=== PATIENT | male | born 1950 | race Caucasian/White ===

== ENCOUNTER 2020-02-05 12:41 | Inpatient (IN) | payer MEDICARE, OTHER ==
[2020-02-05] VITALS (18 sets, daily range): BP systolic 85–120; BP diastolic 52–67
[~2020-02-05] VITALS: Ht 182.9 cm; Wt 72.2 kg
--- NOTE | 2020-02-05 12:45 | NUR ---
BIBRA FROM [facility] TO ER BED 5. AWAKE IN SEVERE RESP DISTRESS SATTING @ 92% ON NON REBREATHER 15LPM. BROUGHT IN FOR SOB. PER REPORT, PT WAS RECENTLY DIAGNOSED W/ FAILURE TO THRIVE PT JUST STAYS IN BED MOST OF THE TIME. PER WAS REPORTED TO HAVE VOMMITED AND POSSIBLY ASPIRATED. PT WAS NOTED BREATHING RAPID AND DEEP W/ RETRACTIONS AND ACCESORY MUSCLE USE. PT NOTED WITH BI;AT CRACKLES. MD IS AT BEDSIDE FOR INTUBATION.
--- NOTE | 2020-02-05 12:50 | NUR ---
RN, RT AND MD AT BEDSIDE FOR INTUBATION SET UP.
[2020-02-05] MEDS ORDERED: PROPOFOL 100 ML ONE (12:55)
--- NOTE | 2020-02-05 12:56 | NUR ---
ETOMIDATE AND NAS GIVEN PER .
--- NOTE | 2020-02-05 12:57 | NUR ---
RT NOTE Pt brought in from assisted living facility for respiratory distress due to possible aspiration. Pt intubated w 8.0 ETT @ 23 cm lip line. Pt then placed on [facility] vent w ordered settings. Abg done and vent setttings changed to RR of 20. Vent is plugged into red outlet w [facility] @ hob. Alarms are set and audible. Ett secure and patent Addendum: 02/05/20 at 1816 by IQRA ORTIZ RT Amended: Links added.
--- NOTE | 2020-02-05 12:57 | NUR ---
INTUBATION DONE BY . ET TUBE SIZE 8, 24 AT THE LIP AND + COLOR CHANGE.
--- NOTE | 2020-02-05 12:58 | NUR ---
PT IS HOOKED TO MECH VENT VIA ET TUBE.
--- NOTE | 2020-02-05 12:58 | NUR ---
VENT SETTING: AC 20 VT550 100% +5PEEP
--- NOTE | 2020-02-05 13:09 | NUR ---
F/C INSERTED FR 16 INDWELLING
[2020-02-05] MEDS ORDERED: GABA-534 PO (13:23)
[2020-02-05] MEDS ORDERED: LEVO-104 PO (13:23)
[2020-02-05] MEDS ORDERED: ALLO100T PO (13:23)
[2020-02-05] MEDS ORDERED: AMLO10TA7 PO (13:23)
[2020-02-05] MEDS ORDERED: HYDR-4384 PO (13:23)
[2020-02-05] MEDS ORDERED: METO100T14 PO (13:23)
--- NOTE | 2020-02-05 13:23 | NUR ---
CALLED NURSING SUP FOR ICU BED.
[2020-02-05] MEDS ORDERED: PIPERACILLIN /TAZOBACTAM 3.375 G in IV D5W 50 ML IV ONE (13:30)
[2020-02-05] MEDS ORDERED: VANCOMYCIN 1 GM in IV D5W 250 ML IV ONE (13:30)
[2020-02-05] MEDS ORDERED: ALBUTEROL FS 2.5 MG/3 ML VIAL.NEB NEB ONE (13:30)
[2020-02-05] MEDS ORDERED: methylPREDNISolone SOD SUCC 125 MG/2ML VIAL IV ONE (13:30)
[2020-02-05] MEDS ORDERED: MORPHINE SULFATE INJ 2 MG/ML DISP.SYRIN IV ONE (13:30)
[2020-02-05] MEDS ORDERED: methylPREDNISolone SOD SUCC 125 MG/2ML VIAL ONE (13:31)
[2020-02-05] MEDS ORDERED: MORPHINE SULFATE INJ 4 MG/ML DISP.SYRIN ONE (13:31)
[2020-02-05 13:39] LABS: BASOPHILS % (AUTO) 0.4 % (0.0-2.0); LYMPHOCYTES # (AUTO) 0.5 /CMM (0.8-4.8); LYMPHOCYTES % (AUTO) 3.8 % (20.0-44.0); MEAN CORPUSCULAR HGB CONC 31 g/dl (31.0-36.0); MEAN CORPUSCULAR VOLUME 105 fL (80-96); MONOCYTES # (AUTO) 0.5 /CMM (0.1-1.30); MONOCYTES % (AUTO) 3.9 % (2.0-12.0); NEUTROPHILS # (AUTO) 12.1 /CMM (1.8-8.9); NEUTROPHILS % (AUTO) 91.9 % (43.0-81.0); PLATELET COUNT (AUTO) 337 /CMM (150-450); WHITE BLOOD COUNT (AUTO) 13.2 K/uL (4.3-11.0)
[2020-02-05 13:40] LABS: APPEARANCE,URINE Clear (CLEAR); BILIRUBIN,URINE Negative (NEGATIVE); BLOOD, URINE Trace-intact Ery/uL (NEGATIVE); COLOR,URINE Yellow (YELLOW); KETONES,URINE Negative (NEGATIVE); LEUKOCYTE ESTERASE ,URINE Negative (NEGATIVE); NITRITE, URINE Negative (NEGATIVE); PROTEIN,URINE >=300 mg/dl (NEGATIVE); UGLUCOSE Negative (NEGATIVE); UROBILINOGEN,URINE 0.2 EU/dL (0.2)
[2020-02-05 13:42] LABS: RED BLOOD CELL COUNT(AUTO) 1.67 MIL/uL (4.5-6.0)
[2020-02-05 13:43] LABS: HEMATOCRIT 18 % (39-51); HEMOGLOBIN 5.4 g/dL (13.5-17.5)
--- NOTE | 2020-02-05 13:46 | NUR ---
VENT SETTING CHANGED TO: AC22 VT550 100% +5PEEP
[2020-02-05] MEDS ORDERED: ALBUTEROL FS 2.5 MG/3 ML VIAL.NEB ONE (13:52)
[2020-02-05] MEDS ORDERED: IV NS 0.9% 500 ML BAG IV ONE (14:00)
[2020-02-05 14:06] LABS: BACTERIA,URINE Rare /HPF (None Seen); SQUAMOUS EPITHELIAL CELL,UR Few /HPF (None Seen); WBC,URINE 0-2 /HPF (0-3)
[2020-02-05 14:11] LABS: ALANINE AMINOTRANSFERASE 13 U/L (12-78); ALKALINE PHOSPHATASE 98 U/L (46-116); ASPARTATE AMINOTRANSFERASE 30 U/L (15-37); BILIRUBIN,DIRECT 0.1 mg/dL (0.0-0.2); BILIRUBIN,TOTAL 0.3 mg/dL (0.2-1.0); CALCIUM, SERUM 8.6 mg/dL (8.5-10.1); CHLORIDE 111 mmol/L (98-107); GLUCOSE 96 mg/dL (74-106); SODIUM SERUM 146 mmol/L (136-145); TOTAL PROTEIN, SERUM 5.7 g/dL (6.4-8.2)
--- NOTE | 2020-02-05 14:22 | NUR ---
PAGED [facility].
[2020-02-05 14:27] LABS: POTASSIUM 6.2 mmol/L (3.5-5.1); UREA NITROGEN, BLOOD 133 mg/dL (7-18)
[2020-02-05 14:28] LABS: CARBON DIOXIDE 7 mmol/L (21-32); CREATININE 11.6 mg/dL (0.6-1.3)
--- NOTE | 2020-02-05 14:40 | NUR ---
NURSING SUP GAVE 250. WAIT 15 MINUTES. CLEANING BED.
[2020-02-05 14:42] LABS: B-TYPE NATRIURETIC PEPTIDE 78601 PG/ML (0-125)
[2020-02-05 14:52] LABS: BAND % (MANUAL) 10 % (0.0-5.0); NEUTROPHILS % (MANUAL) 82 (42-76)
[2020-02-05 14:53] LABS: LYMPHOCYTES % (MANUAL) 5 % (16-48); METAMYELOCYTES % 1 % (0-0); MONOCYTES % (MANUAL) 2 % (0-11.0)
[2020-02-05] MEDS ORDERED: ROCURONIUM BROMIDE 50 MG/5 ML IV ONE (14:55)
[2020-02-05] MEDS ORDERED: ETOMIDATE 2 MG/ML VIAL IV ONE (14:55)
--- NOTE | 2020-02-05 15:05 | NUR ---
report given to john acevedo for jose a. pt going to 261
--- NOTE | 2020-02-05 15:27 | NUR ---
pt transported to unit on gurney with emt, rn and rt at bedside w/ acls protocol.
[2020-02-05] MEDS ORDERED: FEE PK DOSING 1 MIN EA MC ONE (15:28)
[2020-02-05] MEDS ORDERED: ONDANSETRON HCL/PF 4 MG/2 ML VIAL IVP PRN (15:30)
[2020-02-05] MEDS ORDERED: MAGNESIUM HYDROXIDE 30 ML UDC PO PRN (15:30)
[2020-02-05] MEDS ORDERED: HYDROCODONE/APAP 5/325MG 1 EACH TABLET PO PRN (15:30)
[2020-02-05] MEDS ORDERED: ZOLPIDEM TARTRATE 5 MG TABLET PO PRN (15:30)
[2020-02-05] MEDS ORDERED: MAG HYDROX/AL HYDROX/SIMETH 30 ML UDC PO PRN (15:30)
--- NOTE | 2020-02-05 15:45 | NUR ---
RN OPENING NOTES RECEIVED PT VIA GURNEY FROM ED. PT IS INTUBATED, 04/27 AT THE LIP AC 22, TV 550. FIO2 100%, PEEP OF 5. PT IS OBTUNDED, NON-VERBAL, AND BED BOUND. SKIN IS NOT INTACT, MULTIPLE WOUNDS PRESENT. COVID ISO IMPLEMENTED AND ENFORCED. B SOFT WRIST RESTRAINTS ARE INTACT. SAFETY MEASURES HAVE BEEN IMPLEMENTED, CALL LIGHT IS WITHIN REACH, BED IS IN LOWEST AND LOCKED POSITION, SIDE RAILS UP X2, WILL CONTINUE TO MONITOR FOR ANY CHANGES.
[2020-02-05] MEDS: PIPERACILLIN /TAZOBACTAM 2.25 G in IV D5W 50 ML IV SCH ×2 (18:01→23:34)
--- NOTE | 2020-02-05 19:13 | NUR ---
RN NOTES HANDOFF REPORT HAS BEEN GIVEN TO NIGHTSHIFT RN FOR PABLITO.
--- NOTE | 2020-02-05 19:30 | NUR ---
SCHOOL COORDINATOR: INITIAL SHIFT NOTES RECEIVED REPORT FROM DAY SHIFT NURSE. PATIENT LAYING IN BED, INTUBATED, ETT 8, 24CM AT THE LIP AC 22, TV 550, FIO2 100%, PEEP OF 5. PT IS OBTUNDED, NON-VERBAL, AND BED BOUND, WITH PERIODS OF AGITATION, MANIFESTED BY ELEVATED HR IN THE 110s, ELEVATED RR UP TO 35. ISOLATION PRECAUTIONS OBSERVED PATIENT IS RULE OUT COVID-19. GASTRIC TUBE PATENT AND INTACT. B SOFT WRIST RESTRAINTS ARE INTACT. SAFETY MEASURES HAVE BEEN IMPLEMENTED, CALL LIGHT IS WITHIN REACH, BED IS IN LOWEST AND LOCKED POSITION, SIDE RAILS UP X2, WILL CONTINUE TO MONITOR FOR ANY CHANGES.
--- NOTE | 2020-02-05 20:03 | NUR ---
RT NOTE PT RECEIVED INTUBATED WITH 8.0 @ 23 CM RIGHT LIP LINE. MOVED ET TUBE TO MID. AMBU BAG @ HOB. SX DONE, ET TUBE SECURED AND PATENT. SMALL THIN YELLOW SECRETIONS NOTED. ALARMS ON AND AUDIBLE. NO DISTRESS NOTED AT THIS TIME. WILL CONTINUE TO MONITOR. LUIS CHAVEZ @ BEDSIDE. Addendum: 02/05/20 at 2003 by DIANA GROSS RT Amended: Links added.
[2020-02-05] MEDS: Z GUARD REMEDY 2 OZ OINT TP SCH (20:32)
--- NOTE | 2020-02-05 21:12 | NUR ---
MILLROOM SUPERVISOR NOTES PATIENT NOTED TO HAVE PERIODS OF AGITATION, MANIFESTED BY HR INCREASING TO 341=767 BPM, AND RESPIRATORY RATE GOING UP TO THE MID 30s. HERMINIA AGGARWAL DNP NOTIFIED, WITH ORDER TO START DIPRIVAN DRIP IN AGITATION PERSISTS, AND IF BP DROPS, ORDER OBTAINED FOR LEVOPHED DRIP TO KEEP SBP > 90. WILL MONITOR CLOSELY AND CARRY OUT ORDERS
[2020-02-05] MEDS: PROPOFOL 100 ML IV PRN (21:26)
[2020-02-05] MEDS ORDERED: NOREPINEPHRINE 8 MG in IV NS 0.9% 242 ML IV PRN (21:30)
--- NOTE | 2020-02-05 21:30 | NUR ---
CASE PACKER AND SEALER NOTES - BLOOD TRANSFUSION 1ST OF 2 UNITS OF PRBC TRANSFUSION STARTED. WILL MONITOR CLOSELY FOR ADVERSE REACTIONS.
--- NOTE | 2020-02-05 22:00 | NUR ---
AMMONIA WORKER NOTES RECEIVED CALL FROM PATIENT'S FRIEND AND DPOA, EVE DE OLIVEIRA. [phone]. PER YENNIFER, PATIENT HAS A LEFT UPPER ARM AV SHUNT THAT WAS PLACED DUE TO HISTORY OF WORSENING RENAL FUNCTION, BUT THE PATIENT HAS NOT BEEN STARTED ON HD YET. WILL NOTIFY MD REGARDING NEW INFORMATION.
--- NOTE | 2020-02-05 23:07 | NUR ---
SALES REPRESENTATIVE WOMENS HEALTH NOTES RECEIVED CALL FROM DR RUSS LUGO, WHOM WAS ASKING ABOUT THE PATIENT CURRENT PRESENTATION. DR SOLANO MADE AWARE THAT PATIENT IS CURRENTLY ORALLY INTUBATED ON MECHANICAL VENTILATION. PATIENT DOES HAVE A LEFT UPPER ARM AV FISTULA (POA) THAT WAS INSERTED FOR PENDING HD TREATMENTS DUE TO HISTORY OF WORSENING RENAL FUNCTION, BUT HAS NOT BEEN STARTED ON HD YET. PER DR SOLANO, GET STAT CHEM PANEL NOW. DR SOLANO MADE AWARE OF ACTIVE BLOOD TRANSFUSION. PER DR SOLANO, HAVE LAB DRAWN PERIPHERALLY AND TO NOTIFY WITH RESULTS. ORDERS FOR LABS PLACED, LAB CALLED FOR STAT PERIPHERAL. WILL CARRY OUT NEW ORDERS AND MONITOR CLOSELY
[2020-02-05 23:20] LABS: BASOPHILS % (AUTO) 0.2 % (0.0-2.0); HEMATOCRIT 21 % (39-51); LYMPHOCYTES # (AUTO) 0.2 /CMM (0.8-4.8); LYMPHOCYTES % (AUTO) 2.3 % (20.0-44.0); MEAN CORPUSCULAR HGB CONC 32 g/dl (31.0-36.0); MEAN CORPUSCULAR VOLUME 100 fL (80-96); MONOCYTES # (AUTO) 0.2 /CMM (0.1-1.30); MONOCYTES % (AUTO) 1.4 % (2.0-12.0); NEUTROPHILS # (AUTO) 10.3 /CMM (1.8-8.9); NEUTROPHILS % (AUTO) 96.1 % (43.0-81.0); PLATELET COUNT (AUTO) 323 /CMM (150-450); RED BLOOD CELL COUNT(AUTO) 2.13 MIL/uL (4.5-6.0); WHITE BLOOD COUNT (AUTO) 10.7 K/uL (4.3-11.0)
[2020-02-05 23:32] LABS: BILIRUBIN,TOTAL 0.4 mg/dL (0.2-1.0); CALCIUM, SERUM 8.8 mg/dL (8.5-10.1); TOTAL PROTEIN, SERUM 5.8 g/dL (6.4-8.2)
[2020-02-05 23:34] LABS: HEMOGLOBIN 6.8 g/dL (13.5-17.5)
[2020-02-05 23:36] LABS: CREATININE 11.6 mg/dL (0.6-1.3); PHOSPHORUS 8.4 mg/dL (2.5-4.9); POTASSIUM 6.6 mmol/L (3.5-5.1)
[2020-02-06] VITALS (81 sets, daily range): BP systolic 90–148; BP diastolic 54–86
[2020-02-06] MEDS ORDERED: SODIUM BICARBONATE SYR 50 MEQ/50 ML DISP.SYRIN IV ONE
[2020-02-06] MEDS ORDERED: SODIUM POLYSTYRENE SULFONATE 15 G/60 ML BOTTLE PO ONE
--- NOTE | 2020-02-06 | NUR ---
EDUCATION INTERN NOTES - CRITICAL LABS RECEIVED MULTIPLE CRITICAL LABORATORY RESULTS H/H 6.8/ K 6.6 BUN 138 CREAT 11.6 PHOS 8.4 ALL CRITICAL LAB RESULTS RELAYED TO DR FARAMANDIAN. KEITH WITH NEW ORDER FOR KAYEXELATE 30G VIA OGT, 1 AMP BICARB IV PUSH X1, BICARB DRIP (3AMPS IN D5W 1000ML) @ 100ML/HR. PATIENT WITH EXISTING ORDERS FOR 2 UNITS OF PRBC TOTAL. PER EDWARD GONZALES LATER THIS AM.
[2020-02-06] MEDS: Sodium Bicarbonate 150 MEQ in IV D5W 1,000 ML IV PRN ×3 (00:13→20:43)
[2020-02-06] MEDS ORDERED: SODIUM POLYSTYRENE SULFONATE 15 G/60 ML BOTTLE ONE (00:13)
--- NOTE | 2020-02-06 01:19 | NUR ---
EDGE STAINER NOTES WHEN RN WENT TO [facility] W[facility]ER AND OILER BLOOD, MARY FROM LAB EXPLAINED THAT A NEW ORDER MUST BE PLACED FOR THE 2ND UNIT OF PACKED CELLS. NEW ORDER PLACED. WILL TRANSFUSE WHEN BLOOD IS AVAILABLE
--- NOTE | 2020-02-06 01:30 | NUR ---
SOLUTIONS DEVELOPER NOTES NO ADVERSE REACTION TO 1ST UNITS OF PRBC. 2ND UNIT OF PRBC TRANSFUSION STARTED. WILL MONITOR CLOSELY FOR ADVERSE BLOOD TRANSFUSION REACTION
[2020-02-06 02:20] LABS: LYMPHOCYTES % (MANUAL) 4 % (16-48); MONOCYTES % (MANUAL) 1 % (0-11.0)
[2020-02-06 02:21] LABS: BAND % (MANUAL) 8 % (0.0-5.0); NEUTROPHILS % (MANUAL) 87 (42-76)
[2020-02-06 04:41] LABS: APPEARANCE,URINE SL CLOUDY (CLEAR); BILIRUBIN,URINE NEGATIVE (NEGATIVE); BLOOD, URINE LARGE Ery/uL (NEGATIVE); COLOR,URINE YELLOW (YELLOW); KETONES,URINE NEGATIVE (NEGATIVE); LEUKOCYTE ESTERASE ,URINE TRACE (NEGATIVE); NITRITE, URINE NEGATIVE (NEGATIVE); PH,URINE 5.5 (5.0-8.0); PROTEIN,URINE 100 mg/dl (NEGATIVE); UGLUCOSE NEGATIVE (NEGATIVE); UROBILINOGEN,URINE 0.2 EU/dL (0.2)
--- NOTE | 2020-02-06 04:45 | NUR ---
GREENS CUTTER NOTES BLOOD TRANSFUSION UNIT #2/2 INFUSED, NO SIGNS AND SYMPTOMS OF ADVERSE BLOOD TRANSFUSION REACTION. WILL CONTINUE TO MONITOR CLOSELY
[2020-02-06 04:47] LABS: BACTERIA,URINE Moderate /HPF (None Seen); RBC,URINE 21-50 /HPF (0-2); SQUAMOUS EPITHELIAL CELL,UR Rare /HPF (None Seen)
[2020-02-06 04:58] LABS: CREATININE, URINE 100.4 MG/DL (30.0-125.0); URINE TOTAL PROTEIN 287.9 mg/dL (0-11.9)
[2020-02-06] MEDS: PIPERACILLIN /TAZOBACTAM 2.25 G in IV D5W 50 ML IV SCH ×4 (05:02→23:45)
[2020-02-06] MEDS: PROPOFOL 100 ML IV PRN (05:03)
[2020-02-06] MEDS: ACETAMINOPHEN 325 MG TABLET PO PRN (05:09)
[2020-02-06 05:16] LABS: EOSINOPHIL,URINE None Seen
--- NOTE | 2020-02-06 06:44 | NUR ---
PAID INTERN CLOSING NOTES PATIENT LAYING IN BED, REMAINS SEDATED ON DIPRIVAN DRIP, ORALLY INTUBATED ON MECHANICAL VENTILATION. ETT 8.0/23 CM @ LIP LINE, VENT SETTINGS AC 22, TV 550, FIO2 TITRATED TO 80%, PEEP +5. PATIENT IS S/P BLOOD TRANSFUSION OF PRBC X2 UNITS, NO SIGNS AND SYMPTOMS OF ANY BLOOD TRANSFUSION REACTION. DR LUGO CURRENTLY IN ICU, MADE AWARE THAT THE POA REQUESTS FOR HIM TO SPEAK TO THE PATIENT'S PRIMARY MD, DR DOUG DAY, WHOM IS ALSO THE PATIENT'S POWDER WORKER TNT [phone] BEFORE CONSENTS ARE SIGNED. PHONE NUMBER ALSO LOCATED IN THE FRONT OF CHART. NO CONSENT YET OBTAINED FROM DPOA, AWAITING DISCUSSION BETWEEN PATIENT'S DOCTORS. WILL ENDORSE THE PATIENT TO THE AM SHIFT NURSE FOR PABLITO
[2020-02-06 06:55] LABS: BASOPHILS % (AUTO) 0.2 % (0.0-2.0); EOSINOPHILS % (AUTO) 0.3 % (0.0-6.0); HEMATOCRIT 26 % (39-51); HEMOGLOBIN 8.6 g/dL (13.5-17.5); LYMPHOCYTES # (AUTO) 0.2 /CMM (0.8-4.8); LYMPHOCYTES % (AUTO) 1.6 % (20.0-44.0); MEAN CORPUSCULAR HGB CONC 33 g/dl (31.0-36.0); MEAN CORPUSCULAR VOLUME 95 fL (80-96); MONOCYTES # (AUTO) 0.2 /CMM (0.1-1.30); MONOCYTES % (AUTO) 1.6 % (2.0-12.0); NEUTROPHILS # (AUTO) 12.4 /CMM (1.8-8.9); NEUTROPHILS % (AUTO) 96.3 % (43.0-81.0); PLATELET COUNT (AUTO) 267 /CMM (150-450); RED BLOOD CELL COUNT(AUTO) 2.75 MIL/uL (4.5-6.0); WHITE BLOOD COUNT (AUTO) 12.9 K/uL (4.3-11.0)
[2020-02-06 07:03] LABS: CALCIUM, SERUM 8.6 mg/dL (8.5-10.1); PHOSPHORUS 7.6 mg/dL (2.5-4.9); POTASSIUM 5.6 mmol/L (3.5-5.1)
[2020-02-06 07:07] LABS: CREATININE 11.2 mg/dL (0.6-1.3)
[2020-02-06 07:09] LABS: THYROID STIMULATING HORMONE 13.742 uIU/mL (0.358-3.74)
--- NOTE | 2020-02-06 07:10 | NUR ---
RN NOTES RECEIVED PT ON BED, INTUBATED, SEDATED , ON DIPRIVAN AT 20 MCG/KG/MIN, REMAINS SEDATED , ON MECHANICAL VENTILATION. ETT 8.0/23 CM @ LIP LINE, VENT SETTINGS AC 22, TV 550, FIO2 80%, PEEP +5. ON TELE SR HR IN 80'S , OGT TO LIS , R UPPER ARM MIDLINE AND R AC IV G 18 CLEAN, DRY AND INTACT, D5W WITH BICARB AT 100 CC /HR RUNNING . SR UP X3, CALL LIGHT WITHIN EASY REACH, BED LOCKED AND IN LOWEST POSITION, CONTINUE TO MONITOR .
--- NOTE | 2020-02-06 07:40 | NUR ---
RN NOTES TELEPHONE HD CONSENT OBTAINED FROM PT JOSEE.
[2020-02-06] MEDS: PANTOPRAZOLE 40 MG TABLET.DR PO SCH (08:10)
[2020-02-06] MEDS: Z GUARD REMEDY 2 OZ OINT TP SCH ×2 (08:11→21:08)
[2020-02-06 08:22] LABS: IRON, SERUM 12 ug/dl (50-175); TOTAL IRON BINDING CAPACITY 122 ug/dl (250-450)
--- NOTE | 2020-02-06 09:00 | NUR ---
RN NOTES DR PROSPER AWAN REGARDING MED RECON, AND TSH 13.742.
[2020-02-06 09:01] LABS: FERRITIN 2646 ng/mL (8-388)
--- NOTE | 2020-02-06 09:05 | NUR ---
RN NOTES O2 SAT IN LOW 80'S , DR LUIS MALDONADOFED , FIO2 INCREASED TO 100%, CONTINUE TO MONITOR .
[2020-02-06] MEDS ORDERED: AMIODARONE 150 MG in IV D5W 100 ML IV ONE (09:30)
--- NOTE | 2020-02-06 09:30 | NUR ---
RN NOTES PT DONE WITH DH , HR IN 160'S , A.CHANDU, DR ARMAS NOTIFED , ORDER RECEIVED FOR AMIO 159 BOLUS AND DRIP. CONTINUE TO MONITOR . Addendum: 02/06/20 at 1850 by GUSTAVO FLORES RN CORRECTION AMIO 150
[2020-02-06] MEDS ORDERED: VANCOMYCIN 1 GM in IV D5W 250 ML IV ONE (10:00)
[2020-02-06] MEDS: AMIODARONE 450 MG in IV D5W 250 ML IV PRN ×2 (10:04→19:24)
[2020-02-06 10:45] LABS: ABG BASE EXCESS -7.2 mmol/L; ABG OXYGEN SATURATION 96.7 % (92.0-98.5); ABG PH 7.374 (7.350-7.450); ABG PO2 94.8 mmHg (75.0-100.0); AaDO2 588.2 mmHg; COHb 0.3 % (0.5-1.5); MetHb 0.1 % (0.0-1.5); O2Hb 96.3 % (94.0-97.0); SITE, ABG Right Radial; VENT MODE, BG AC 22 550 +8 100%
[2020-02-06] MEDS: PROPOFOL 10MG/ML 50ML 50 ML IV PRN ×4 (11:01→23:27)
--- NOTE | 2020-02-06 12:00 | NUR ---
RN NOTES HR IN 80'S SINUS RYTHEM , VSS STABLE AT THIS TIME CONTINUE TO MONITOR .
[2020-02-06] MEDS: VANCOMYCIN POST DIALYSIS 500MG IV PRN ×2 (13:17)
--- NOTE | 2020-02-06 15:00 | NUR ---
RN NOTES NO GASTRIC GRAINAGE NOTED FROM OGT, PT SILL NPO, CONTINUE TO MONITOR .
--- NOTE | 2020-02-06 18:51 | NUR ---
RN NOTES PT REMAINS INTUBATED AND SEDATED ON DIPRIVAN AT 30MCG/KG/MIN , AMIO GTT AT .5 MG /MIN RUNNING , HR IN 80'S SR, D5W WITH BICARB AT 100CC /HR RUNNING , OGT TO LIS, SR UP x3, CALL LIGHT WITHIN EASY REACH , BED LOCKED AND IN LOWEST POSITION, WILL ENDOSE TO SURGICAL INSTRUMENT MECHANIC NURSE FOR CONTINUITY OF CARE .
--- NOTE | 2020-02-06 20:20 | NUR ---
RN NOTES RECEIVED PATIENT SEDATED ON BED. ORALLY INTUBATED WITH ETT 8 , 23 CM AT LIP WITH VENT SETTING AC 22 TV 550 FIO2 80% AND PEEP 5. TOLERATED WELL SATURATION 100%> aAFEBRILE, STRICTLY ON ISOLATION FOR R/O COVID. NO SOB OR RESPIRATORY DISTRESS. ST ON TELE MONITOR 100'S. CONTINEU ON AMIODARONE DRIP FOR EPISODE OF AFIB 160'S IN PREV. SHIFT. IV SITE ON HARPER MIDLINE WITH 3 AMP OF BICARB @ 100 ML/HR AMIODARONE @ o.5 STARTED AT 4PM AND DIPRIVAN @ 30 MG/KG/MIN. KEPT PT CLEAN AND DRY. CORINNE. SOFT WRIST RESTRAINT KEPT IN PLACED. CIRCULATION CHECKED . WILL CLOSELY MONITOR.
[2020-02-07] VITALS (73 sets, daily range): BP systolic 99–216; BP diastolic 57–90
[2020-02-07 04:00] LABS: BASOPHILS % (AUTO) 0.3 % (0.0-2.0); EOSINOPHILS % (AUTO) 0.2 % (0.0-6.0); HEMATOCRIT 25 % (39-51); HEMOGLOBIN 8.4 g/dL (13.5-17.5); LYMPHOCYTES # (AUTO) 0.5 /CMM (0.8-4.8); LYMPHOCYTES % (AUTO) 3.7 % (20.0-44.0); MEAN CORPUSCULAR HGB CONC 34 g/dl (31.0-36.0); MEAN CORPUSCULAR VOLUME 93 fL (80-96); MONOCYTES # (AUTO) 0.4 /CMM (0.1-1.30); MONOCYTES % (AUTO) 3.1 % (2.0-12.0); NEUTROPHILS % (AUTO) 92.7 % (43.0-81.0); PLATELET COUNT (AUTO) 218 /CMM (150-450); RED BLOOD CELL COUNT(AUTO) 2.63 MIL/uL (4.5-6.0)
[2020-02-07] MEDS: PROPOFOL 10MG/ML 50ML 50 ML IV PRN ×7 (04:08→22:19)
[2020-02-07 04:09] LABS: CALCIUM, SERUM 7.9 mg/dL (8.5-10.1); MAGNESIUM 1.8 mg/dL (1.8-2.4); POTASSIUM 3.9 mmol/L (3.5-5.1)
[2020-02-07] MEDS: PIPERACILLIN /TAZOBACTAM 2.25 G in IV D5W 50 ML IV SCH ×4 (05:04→23:41)
[2020-02-07 05:42] LABS: CREATININE 7.6 mg/dL (0.6-1.3)
--- NOTE | 2020-02-07 06:25 | NUR ---
RN NOTES PATIENT ETT AND VENT SETTING TOLERATED WELL. NO SIGNIFICANT CHANGES THROUGHOUT THE SHIT. AFEBRILE. VSS. INCONTINENT CARE RENDERED. CHARITY ND VENT SETTING TOLERATED WELL. NOTED PATIENT WITH EPISODE OF ANXIETY. CONTINUE TO MONITOR PATIENT FOR PENDING RESULT O F COVID TEST. CONTINUE ON IV F BICARB, DIRRIVAN AND AMIODARONE. AND IV ATB KEPT CLEAN AND DRY. BED KEPT LOCKED AND SECURED. WILL ENDORSED COTINUITY OFCARE TO AM NURSE.
[2020-02-07 07:37] LABS: ABG BASE EXCESS 3.1 mmol/L; ABG OXYGEN SATURATION 96.2 % (92.0-98.5); ABG PCO2 27.5 mmHg (35.0-45.0); ABG PH 7.574 (7.350-7.450); ABG PO2 84.4 mmHg (75.0-100.0); AaDO2 457.1 mmHg; MetHb 0.1 % (0.0-1.5); O2Hb 96.1 % (94.0-97.0); SITE, ABG Right Radial; VENT MODE, BG AC 12 550 80% +8
--- NOTE | 2020-02-07 07:57 | NUR ---
WOUND CARE CONSULT: REVIEWED CHART, NURSING DOCUMENTATION AND PHOTOS WHICH SHOW MULTIPLE WOUNDS PRESENT ON ADMISSION. RECOMMEND SURGICAL CONSULT. DR VARGHESE NOTIFIED OF CONSULT REQUEST. RECOMMENDATIONS FOR SKIN PROTECTION DISCUSSED WITH NURSING STAFF. WILL SEE PRN. PT IS ON [place] ISOFLEX LOW AIRLOSS BED.
[2020-02-07] MEDS: AMIODARONE HCL 200 MG TABLET NG SCH ×3 (08:12→16:46)
[2020-02-07] MEDS: PANTOPRAZOLE 40 MG TABLET.DR PO SCH (08:13)
[2020-02-07] MEDS: ALLOPURINOL 100 MG TABLET PO SCH (09:04)
[2020-02-07] MEDS: GABAPENTIN 300 MG CAPSULE PO SCH ×2 (09:06→16:45)
[2020-02-07] MEDS: METOPROLOL TARTRATE 50 MG TABLET PO SCH ×2 (09:06→20:11)
[2020-02-07] MEDS: AMLODIPINE BESYLATE 10 MG TABLET PO SCH (09:07)
[2020-02-07] MEDS: IV D5/ 0.9% NACL 1,000 ML IV PRN ×2 (09:07→18:37)
[2020-02-07 09:12] LABS: OCCULT BLOOD STOOL NEGATIVE (NEGATIVE)
[2020-02-07] MEDS: Z GUARD REMEDY 2 OZ OINT TP PRN ×4 (09:23→21:24)
[2020-02-07] MEDS: Z GUARD REMEDY 2 OZ OINT TP SCH ×2 (09:30→21:25)
--- NOTE | 2020-02-07 14:15 | NUR ---
REPEAT COVID TEST PER DR. SMITH
[2020-02-07] MEDS: SOD FERRIC GLUC 125 MG in IV NS 0.9% 100 ML IV SCH (14:18)
[2020-02-07] MEDS: NITROGLYCERIN 30 GM TUBE TP SCH ×2 (17:06→23:42)
--- NOTE | 2020-02-07 18:32 | NUR ---
ICU/RN: Pt remains on Propofol at 40 mcg at this time, appears sedated and comfortable. PT was not able to tolerate 35 mcg as he was pulling on his trach and his IV lines, in spite [place] was given. Having HD at this time, tolerating well. First COVID test is negative, sent another test as ordered for confirmation per DR. Grissom. NO drainage noted from his OGT to LIS. Urine output x 12 hrs was about 200 ml, clear and yellow. Spoke to Dann BONDS, updated with pt's status. REquests to get transferred to [facility] as soon as it is safe, PCP and Nephro are there. Will given report to shift supervisor rn.
--- NOTE | 2020-02-07 20:00 | NUR ---
Received patient on Diprivan gtt and intubated to mechanical vent.Settings welll tolerated. HD just finished with 1.5 Liters out.Will give Vancomycin post HD per order.Patient agitated and trying to reach for ETT.With bilateral soft wrist restraints in place.Diprivan gtt titrated to sedation.With moderate bm pasty dark green.Perineal and bed bath rendered.Turned and repositioned to comfort.Afebrile.Normotensive.Tachycardic 130's will administer Scheduled Metoprolol per OGT.Now connected to LIWS.NPO with maintenance IVF infusing via HARPER ML. FC in place with scanty yellow urine.Continue monitoring.
[2020-02-07] MEDS: VANCOMYCIN POST DIALYSIS 500MG IV PRN ×2 (20:01)
[2020-02-08] VITALS (44 sets, daily range): BP systolic 117–148; BP diastolic 51–69
[2020-02-08] MEDS: PROPOFOL 10MG/ML 50ML 50 ML IV PRN ×9 (01:00→20:51)
[2020-02-08] MEDS ORDERED: IV NS 0.9% 250 ML IV ONE (01:30)
[2020-02-08] MEDS: IV D5/ 0.9% NACL 1,000 ML IV PRN ×3 (04:15→23:22)
[2020-02-08 05:22] LABS: CALCIUM, SERUM 7.4 mg/dL (8.5-10.1); MAGNESIUM 1.6 mg/dL (1.8-2.4); PHOSPHORUS 3.1 mg/dL (2.5-4.9)
[2020-02-08 05:24] LABS: BASOPHILS % (AUTO) 0.1 % (0.0-2.0); EOSINOPHILS % (AUTO) 1.5 % (0.0-6.0); HEMATOCRIT 25 % (39-51); HEMOGLOBIN 8.2 g/dL (13.5-17.5); LYMPHOCYTES # (AUTO) 0.7 /CMM (0.8-4.8); LYMPHOCYTES % (AUTO) 4.5 % (20.0-44.0); MEAN CORPUSCULAR HGB CONC 33 g/dl (31.0-36.0); MEAN CORPUSCULAR VOLUME 95 fL (80-96); MONOCYTES # (AUTO) 0.3 /CMM (0.1-1.30); MONOCYTES % (AUTO) 1.7 % (2.0-12.0); NEUTROPHILS # (AUTO) 14.8 /CMM (1.8-8.9); NEUTROPHILS % (AUTO) 92.2 % (43.0-81.0); PLATELET COUNT (AUTO) 188 /CMM (150-450); RED BLOOD CELL COUNT(AUTO) 2.62 MIL/uL (4.5-6.0)
[2020-02-08 05:26] LABS: POTASSIUM 2.6 mmol/L (3.5-5.1)
[2020-02-08] MEDS: PIPERACILLIN /TAZOBACTAM 2.25 G in IV D5W 50 ML IV SCH ×3 (05:28→20:00)
[2020-02-08] MEDS: NITROGLYCERIN 30 GM TUBE TP SCH ×3 (05:29→17:17)
--- NOTE | 2020-02-08 06:15 | NUR ---
Patient AM labs resulted.K+ LEVEL 2.6 called to Erwin Salter NP with orders received and carried out.
[2020-02-08] MEDS ORDERED: POTASSIUM CHLORIDE 20 MEQ POWDER PACKET GT ONE (06:30)
--- NOTE | 2020-02-08 06:45 | NUR ---
Received call from Marilyn at [facility] states the Enteric tube position in the region of the gastroesophageal junction recommend advancing 5-10 cm or follow up abdominal radiographs to confirm position or KUB.Paged DONY Clifton for orders and will endorse to day shift for PABLITO.Patient resting in no acute distress.
[2020-02-08 07:00] LABS: ABG BASE EXCESS -1.9 mmol/L; ABG OXYGEN SATURATION 98.1 % (92.0-98.5); ABG PCO2 32.7 mmHg (35.0-45.0); ABG PH 7.443 (7.350-7.450); ABG PO2 122.3 mmHg (75.0-100.0); AaDO2 413.8 mmHg; COHb 0.1 % (0.5-1.5); MetHb 0.2 % (0.0-1.5); O2Hb 97.8 % (94.0-97.0); SITE, ABG Right Radial; VENT MODE, BG AC 18 500 80% +8
--- NOTE | 2020-02-08 07:15 | NUR ---
RN INITIAL NOTES RECEIVED PT INTUBATED, ON VENT. NO RESPIRATORY DISTRESS NOTED. NO SOB NOTED. HOB ELEVATED. NO SIGNS OF PAIN NOTED. OG IN PLACE CONNECTED TO LOW SUCTION. HARPER MIDLINE IN PLACE. IVF INFUSING. PT SEDATED, ON DIPRIVAN AT 50MCG/KG/MIN. WILL TITRATE ACCORDINGLY. [place] IN PLACE. BLE ELEVATED. PT COMFORTABLE. WILL CLOSELY MONITOR
[2020-02-08] MEDS: LEVOTHYROXINE SODIUM 100 MCG TABLET PO SCH (07:36)
[2020-02-08] MEDS: PANTOPRAZOLE 40 MG TABLET.DR PO SCH (07:36)
[2020-02-08] MEDS: GABAPENTIN 300 MG CAPSULE PO SCH ×2 (08:25→16:43)
[2020-02-08] MEDS: ALLOPURINOL 100 MG TABLET PO SCH (08:25)
[2020-02-08] MEDS: METOPROLOL TARTRATE 50 MG TABLET PO SCH ×2 (08:25→21:00)
[2020-02-08] MEDS: AMIODARONE HCL 200 MG TABLET NG SCH ×3 (08:26→16:43)
[2020-02-08] MEDS: Z GUARD REMEDY 2 OZ OINT TP SCH ×2 (08:26→21:07)
[2020-02-08] MEDS: AMLODIPINE BESYLATE 10 MG TABLET PO SCH (08:26)
--- NOTE | 2020-02-08 09:00 | NUR ---
RN NOTES SEEN AND EXAMINED BY DR SMITH. AWARE OF LAB VALUES, ABG AND CXR RESULT. TITRATED FI02 TO 60%, PEEP DOWN TO 5. NO RESPIRATORY DISTRESS NOTED. HOB ELEVATED. WILL CLOSELY MONITOR
[2020-02-08] MEDS: SOD FERRIC GLUC 125 MG in IV NS 0.9% 100 ML IV SCH (13:55)
[2020-02-08] MEDS: Magnesium 1GM/D5W 100ML PREMIX 100 ML IV SCH ×2 (16:02→17:17)
--- NOTE | 2020-02-08 18:40 | NUR ---
RN CLOSING NOTES NO SIGNIFICANT CHANGE NOTED. PT REMAINS INTUBATED, ON VENT. REMAINS SEDATED. IVF INFUSING. KEPT CLEAN AND DRY.TX PROVIDED ORDERED. REPOSITIONED Q2. WILL ENDORSE FOR CONTINUITY OF CARE
--- NOTE | 2020-02-08 20:00 | NUR ---
Received patient intubated to mechanical vent on same prescribed settings and tolerating well. Sedated on Diprivan gtt at 50 mcg.No acute distress noted.SR/SB low 50's.Normotensive.OGT Placement verified and patent connected to LIWS draining greenish output.FC intact oliguric. HD PARIS AVF site intact.IVF D5NS infusing via HARPER ML together with Diprivan gtt,site without signs of infection noted.Turned and repositioned.Continue monitoring.
[2020-02-09] VITALS (30 sets, daily range): BP systolic 128–172; BP diastolic 58–84
[2020-02-09] MEDS: PROPOFOL 10MG/ML 50ML 50 ML IV PRN ×9 (00:02→22:47)
[2020-02-09] MEDS: NITROGLYCERIN 30 GM TUBE TP SCH ×4 (00:03→17:54)
[2020-02-09] MEDS: IV NS 0.9% 250 ML IV PRN (02:25)
[2020-02-09] MEDS: PIPERACILLIN /TAZOBACTAM 2.25 G in IV D5W 50 ML IV SCH ×3 (03:45→20:29)
[2020-02-09 05:12] LABS: CALCIUM, SERUM 7.4 mg/dL (8.5-10.1); POTASSIUM 2.9 mmol/L (3.5-5.1)
--- NOTE | 2020-02-09 05:25 | NUR ---
MARY from lab called patient lab test COVID 19 resulted ans its NEGATIVE.
--- NOTE | 2020-02-09 06:30 | NUR ---
Patient remains sedated and intubated.With copious secretions orally.Secretions suction PRN and oral care done.VS stable.Bathed and complete linens changed.Turned and repositioned Q 2 hrs. Diprivan gtt infusing still at 50 mcg.and maintenance IVF.Patient easy awakened.BM X1 moderate greenish pasty stool.Kept clean and dry.All needs met.Still for ECHO.Will endorse to day shift for jose a.
[2020-02-09] MEDS: LEVOTHYROXINE SODIUM 100 MCG TABLET PO SCH (08:06)
[2020-02-09] MEDS: POTASSIUM CL. PREMIX PERIPHER. 50 ML IV SCH ×6 (08:06→13:25)
[2020-02-09] MEDS: ALLOPURINOL 100 MG TABLET PO SCH (08:06)
[2020-02-09] MEDS: PANTOPRAZOLE 40 MG TABLET.DR PO SCH (08:06)
[2020-02-09] MEDS: GABAPENTIN 300 MG CAPSULE PO SCH ×2 (08:06→16:58)
[2020-02-09] MEDS: AMIODARONE HCL 200 MG TABLET NG SCH ×3 (08:07→16:59)
[2020-02-09] MEDS: Z GUARD REMEDY 2 OZ OINT TP SCH ×2 (08:07→20:45)
[2020-02-09] MEDS: METOPROLOL TARTRATE 50 MG TABLET PO SCH ×2 (08:07→20:43)
[2020-02-09] MEDS: AMLODIPINE BESYLATE 10 MG TABLET PO SCH (08:07)
[2020-02-09 08:32] LABS: BASOPHILS % (AUTO) 0.2 % (0.0-2.0); HEMATOCRIT 27 % (39-51); HEMOGLOBIN 8.8 g/dL (13.5-17.5); LYMPHOCYTES # (AUTO) 0.5 /CMM (0.8-4.8); LYMPHOCYTES % (AUTO) 3.3 % (20.0-44.0); MEAN CORPUSCULAR HGB CONC 33 g/dl (31.0-36.0); MEAN CORPUSCULAR VOLUME 95 fL (80-96); MONOCYTES # (AUTO) 0.2 /CMM (0.1-1.30); MONOCYTES % (AUTO) 1.6 % (2.0-12.0); NEUTROPHILS % (AUTO) 92.9 % (43.0-81.0); PLATELET COUNT (AUTO) 160 /CMM (150-450); RED BLOOD CELL COUNT(AUTO) 2.79 MIL/uL (4.5-6.0); WHITE BLOOD COUNT (AUTO) 15.1 K/uL (4.3-11.0)
[2020-02-09 08:55] LABS: ABG BASE EXCESS -4.1 mmol/L; ABG OXYGEN SATURATION 98.8 % (92.0-98.5); ABG PCO2 30.6 mmHg (35.0-45.0); ABG PH 7.424 (7.350-7.450); ABG PO2 149.2 mmHg (75.0-100.0); AaDO2 244.9 mmHg; COHb 0.3 % (0.5-1.5); MetHb 0.1 % (0.0-1.5); O2Hb 98.4 % (94.0-97.0); PEEP,BG 5 cm H2O; SITE, ABG Right Radial; VT, ABG 500 mL
--- NOTE | 2020-02-09 09:00 | NUR ---
FIO2 DECREASE FROM 60% TO 40% DUE TO 149 PAO2 AND 100% SPO2 Addendum: 02/09/20 at 0900 by SHADIA MOORE RT Amended: Links added.
--- NOTE | 2020-02-09 09:00 | NUR ---
RN NOTES SEEN AND EXAMINED BY DR SMITH. AWARE OF LAB VALUES. CXR AND ABG RESULT. FI02 TITRATED TO 40%. WILL CLOSELY MONITOR
[2020-02-09] MEDS: IV D5/ 0.9% NACL 1,000 ML IV PRN ×2 (09:23→20:52)
--- NOTE | 2020-02-09 10:57 | NUR ---
ET TUBE ADJUSTED FROM 23 CM TO [address] SMITH. Addendum: 02/09/20 at 1058 by SHADIA MOORE RT Amended: Links added.
--- NOTE | 2020-02-09 11:42 | NUR ---
INITIAL ECHOCARDIOGRAM SHOWED 60-65% EF~ WITH LARGE PLEURAL EFFUSION. RN ADVISED.
[2020-02-09] MEDS: SOD FERRIC GLUC 125 MG in IV NS 0.9% 100 ML IV SCH (14:18)
--- NOTE | 2020-02-09 18:26 | NUR ---
RN CLOSING NOTES NO SIGNIFICANT CHANGE NOTED. PT REMAINS INTUBATED, ON VENT. REMAINS SEDATED. IVF INFUSING. HD DONE, 2L OUT. TOLERATED WELL. KEPT CLEAN AND DRY.TX PROVIDED ORDERED. REPOSITIONED Q2. WILL ENDORSE FOR CONTINUITY OF CARE
[2020-02-09] MEDS: VANCOMYCIN POST DIALYSIS 500MG IV PRN ×2 (18:57)
--- NOTE | 2020-02-09 19:41 | NUR ---
RT NOTE PT RECEIVED INTUBATED WITH 7.5 ET TUBE @ 25.5 CM MID LIP LINE. CUFF CHECKED VIA WHEEL BUFFER. SX DONE, ET TUBE SECURED AND PATENT. ALARMS ON AND AUDIBLE. NO DISTRESS NOTED. WILL CONTINUE TO MONITOR T/O SHIFT. VENT PLUGGED TO RED OUTLET. Addendum: 02/09/20 at 1941 by DIANA GROSS RT Amended: Links added. Addendum: 02/09/20 at 1953 by DIANA GROSS RT PT INTUBATED WITH 8.0 ET TUBE
[2020-02-10] VITALS (38 sets, daily range): BP systolic 117–183; BP diastolic 57–98
[2020-02-10] MEDS: NITROGLYCERIN 30 GM TUBE TP SCH ×4 (00:32→17:30)
[2020-02-10] MEDS: PROPOFOL 10MG/ML 50ML 50 ML IV PRN ×3 (01:26→06:29)
[2020-02-10] MEDS: PIPERACILLIN /TAZOBACTAM 2.25 G in IV D5W 50 ML IV SCH ×3 (03:24→20:01)
[2020-02-10 04:26] LABS: ALBUMIN 1.6 g/dL (3.4-5.0); BASOPHILS % (AUTO) 0.1 % (0.0-2.0); BILIRUBIN,TOTAL 0.3 mg/dL (0.2-1.0); CREATININE 3.8 mg/dL (0.6-1.3); EOSINOPHILS % (AUTO) 3.5 % (0.0-6.0); HEMATOCRIT 28 % (39-51); HEMOGLOBIN 9.2 g/dL (13.5-17.5); LYMPHOCYTES # (AUTO) 0.6 /CMM (0.8-4.8); LYMPHOCYTES % (AUTO) 3.2 % (20.0-44.0); MAGNESIUM 1.9 mg/dL (1.8-2.4); MEAN CORPUSCULAR HGB CONC 33 g/dl (31.0-36.0); MEAN CORPUSCULAR VOLUME 96 fL (80-96); MONOCYTES # (AUTO) 0.5 /CMM (0.1-1.30); MONOCYTES % (AUTO) 2.9 % (2.0-12.0); NEUTROPHILS # (AUTO) 15.8 /CMM (1.8-8.9); NEUTROPHILS % (AUTO) 90.3 % (43.0-81.0); PHOSPHORUS 3.2 mg/dL (2.5-4.9); PLATELET COUNT (AUTO) 148 /CMM (150-450); POTASSIUM 3.4 mmol/L (3.5-5.1); RED BLOOD CELL COUNT(AUTO) 2.87 MIL/uL (4.5-6.0); TOTAL PROTEIN, SERUM 4.9 g/dL (6.4-8.2); WHITE BLOOD COUNT (AUTO) 17.5 K/uL (4.3-11.0)
[2020-02-10 05:07] LABS: *SPE A/G RATIO 0.8 (0.7-1.7); *SPE ALBUMIN 2.3 g/dL (2.9-4.4); *SPE ALPHA-1-GLOBULIN 0.6 g/dL (0.0-0.4); *SPE ALPHA-2-GLOBULIN 1.1 g/dL (0.4-1.0); *SPE BETA GLOBULIN 0.6 g/dL (0.7-1.3); *SPE GLOBULIN, TOTAL 2.9 g/dL (2.2-3.9); *SPE M-SPIKE 0.1 g/dL (Not Observed); *SPEGAMMA GLOBULIN 0.7 g/dL (0.4-1.8)
[2020-02-10] MEDS: IV D5/ 0.9% NACL 1,000 ML IV PRN (06:40)
[2020-02-10] MEDS ORDERED: POTASSIUM CHLORIDE 20 MEQ POWDER PACKET NG SCH (07:30)
[2020-02-10] MEDS: LEVOTHYROXINE SODIUM 100 MCG TABLET PO SCH (07:54)
[2020-02-10] MEDS: PANTOPRAZOLE 40 MG TABLET.DR PO SCH (07:54)
[2020-02-10] MEDS: GABAPENTIN 300 MG CAPSULE PO SCH ×2 (07:58→17:29)
[2020-02-10] MEDS: AMLODIPINE BESYLATE 10 MG TABLET PO SCH (07:59)
[2020-02-10] MEDS: ALLOPURINOL 100 MG TABLET PO SCH (08:03)
[2020-02-10] MEDS: AMIODARONE HCL 200 MG TABLET NG SCH ×3 (08:25→17:29)
[2020-02-10] MEDS: METOPROLOL TARTRATE 50 MG TABLET PO SCH ×2 (08:25→20:52)
[2020-02-10] MEDS: Z GUARD REMEDY 2 OZ OINT TP SCH ×2 (08:57→20:53)
[2020-02-10] MEDS ORDERED: DC PROPOFOL WHEN EXTUBATED XX PRN (09:00)
[2020-02-10 09:45] LABS: ABG OXYGEN SATURATION 95.8 % (92.0-98.5); ABG PCO2 28.5 mmHg (35.0-45.0); ABG PH 7.478 (7.350-7.450); ABG PO2 75.8 mmHg (75.0-100.0); AaDO2 176.6 mmHg; COHb 0.3 % (0.5-1.5); MetHb 0.3 % (0.0-1.5); O2Hb 95.2 % (94.0-97.0); SITE, ABG Right Radial; VENT MODE, BG SIMV 4 PS 15 40% +5
--- NOTE | 2020-02-10 10:32 | NUR ---
ICU/RN: pt was received this am sedated on Propofol at 50 mcg/kg/min. ETT to vent on AC as ordered. Decreased Propofol down anticipating weaning trials this am as ordered. Pls see IV spreadsheet or details. 0900 Propofol was off, spontaneous breathing trial started, O2 sat 96-98%, HR 60's, pt is breathing WNL, 1000 ABG done 1 hour after was placed on SIMV and then was extubated successfully. Pt is on 3 LPM/NC now, tolerating very well. Will continue to monitor.
--- NOTE | 2020-02-10 11:14 | NUR ---
Physician Communication Dr. Fish made aware of: - no DVT prophylaxis (hgb, plts, Dr. Gould's note provided) -> received orders for SCD pump only. - 3+ edema on bilateral hands, warm, red. no documentation of this seen in charting, doppler to r/o DVT ordered
[2020-02-10] MEDS: IV NS 0.9% 250 ML IV PRN (13:25)
[2020-02-10] MEDS: SOD FERRIC GLUC 125 MG in IV NS 0.9% 100 ML IV SCH (14:20)
--- NOTE | 2020-02-10 18:30 | NUR ---
Pt was extubated at [address] Grissom, remains to tolerate 3 LPM/NC with O2 sat 96-98%. Pt is disoriented to date and situation in spite of reorientation. Hekp Lopressor this am due to HR was on the low 50's. Pt was able to tolerate ice chips and applesauce with no sign of aspiration, was able to swallow crushed meds with applesauce. Swallow eval will be done robin, 24hrs post extubation per Speech therapist. Mitten restraints applied because pt was removing wound dressings and pulled out the HARPER PIV, in spite of education and hiding IV tubing. US doppler of bilat UE not yet done, radiology made aware of the order. Will give report to incoming rn shift mgr for continuity of care.
--- NOTE | 2020-02-10 18:34 | NUR ---
DOCTORATE OF CHIROPRACTIC Shift Summary Patient remains verbal, A/Ox2 (aware of name+place), PERRLA. Attached to 2L O2 via NC, SPO2 95%, no SOB noted, RR even+unlabored. Per military technology manager, [employer] M[employer] tech will come when able for BUE venous doppler to r/o DVT. Tele monitor attached, SR 80s, BP slightly elevated, patient reports he wants to "get out of here". VAMSHI Reese updated and spoke to patient today via phone. Remained afebrile. Cough noted, non productive. HARPER midline infusing D5NS @20mL/hr, NS @TKO. Daily draining minimal urine. Mittens placed on both hands due to patient actively pulling at dressings. Wound care completed. Turned per protocol. SCDs on and working per MD order. No DVT prophylaxis, see Physician Communication note.
--- NOTE | 2020-02-10 19:30 | NUR ---
RIPPER OPERATOR OPENING NOTES. RECEIVED PATIENT IN BED, AWAKE, A/O X2, ANSWERS QUESTIONS BUT FORGETFUL. ON 2L O2, SATURATING WELL NO SOB OR ACUTE DISTRESS NOTED ST THIS TIME. SR ON TELE MONITOR. HARPER MID-LINE IS PATENT AND FLUSHING ELL, RUNNING 20ML/HR D5NS, AND NS TKO. [place] CATH IS DRAINING TO THE GRAVITY CLEAR YELLOW URINE. MITTENS NOTED ON BOTH HANDS DUE TO PULLING OUT IV AND REMOVING NS. BED IN LOW LOCKED POSITION. WILL CONTINUE TO MONITOR THE PATIENT CLOSELY.
[2020-02-11] VITALS (24 sets, daily range): BP systolic 134–186; BP diastolic 41–79
[2020-02-11] MEDS: NITROGLYCERIN 30 GM TUBE TP SCH ×4 (00:36→20:50)
[2020-02-11 04:18] LABS: BASOPHILS % (AUTO) 0.2 % (0.0-2.0); EOSINOPHILS % (AUTO) 0.5 % (0.0-6.0); HEMATOCRIT 28 % (39-51); LYMPHOCYTES # (AUTO) 0.5 /CMM (0.8-4.8); LYMPHOCYTES % (AUTO) 2.2 % (20.0-44.0); MEAN CORPUSCULAR HGB CONC 32 g/dl (31.0-36.0); MEAN CORPUSCULAR VOLUME 98 fL (80-96); MONOCYTES # (AUTO) 0.7 /CMM (0.1-1.30); MONOCYTES % (AUTO) 3.5 % (2.0-12.0); NEUTROPHILS # (AUTO) 19.7 /CMM (1.8-8.9); NEUTROPHILS % (AUTO) 93.6 % (43.0-81.0); PLATELET COUNT (AUTO) 181 /CMM (150-450); RED BLOOD CELL COUNT(AUTO) 2.88 MIL/uL (4.5-6.0)
[2020-02-11 04:33] LABS: CALCIUM, SERUM 8.2 mg/dL (8.5-10.1); CREATININE 4.3 mg/dL (0.6-1.3); MAGNESIUM 1.9 mg/dL (1.8-2.4); PHOSPHORUS 3.8 mg/dL (2.5-4.9); POTASSIUM 3.7 mmol/L (3.5-5.1)
[2020-02-11] MEDS: PIPERACILLIN /TAZOBACTAM 2.25 G in IV D5W 50 ML IV SCH ×3 (04:49→20:48)
--- NOTE | 2020-02-11 06:50 | NUR ---
FRY COOK CLOSING NOTES, PATIENT IN BED, AWAKE, A/O X2, ANSWERS QUESTIONS BUT FORGETFUL. ON 2L O2, SATURATING WELL NO SOB OR ACUTE DISTRESS NOTED ST THIS TIME. SR ON TELE MONITOR. HARPER MID-LINE IS PATENT AND FLUSHING ELL, RUNNING 20ML/HR D5NS, AND NS TKO. [place] CATH IS DRAINING TO THE GRAVITY CLEAR YELLOW URINE. MITTENS NOTED ON BOTH HANDS DUE TO PULLING OUT IV AND REMOVING NS. BED IN LOW LOCKED POSITION. WILL ENDORSE THE PATIENT TO AM RN FOR PABLITO.
[2020-02-11] MEDS: GABAPENTIN 300 MG CAPSULE PO SCH ×2 (07:49→16:25)
[2020-02-11] MEDS: LEVOTHYROXINE SODIUM 100 MCG TABLET PO SCH (07:49)
[2020-02-11] MEDS: ALLOPURINOL 100 MG TABLET PO SCH (07:49)
[2020-02-11] MEDS: AMIODARONE HCL 200 MG TABLET NG SCH (07:50)
[2020-02-11] MEDS: PANTOPRAZOLE 40 MG TABLET.DR PO SCH (07:50)
[2020-02-11] MEDS: METOPROLOL TARTRATE 50 MG TABLET PO SCH ×2 (07:50→20:49)
[2020-02-11] MEDS: Z GUARD REMEDY 2 OZ OINT TP SCH ×2 (07:51→20:51)
[2020-02-11] MEDS: AMLODIPINE BESYLATE 10 MG TABLET PO SCH (07:51)
[2020-02-11] MEDS: hydrALAZINE HCL 50 MG TABLET PO SCH ×3 (09:00→16:25)
[2020-02-11] MEDS: IV NS 0.9% 250 ML IV PRN (09:00)
--- NOTE | 2020-02-11 10:00 | NUR ---
patient seen by speech therapist who recommended a pureed diet with nectar thick liquids. thickener at bedside, sign placed above bed, patient sitting in high fowlers, frequent oral care, suction at bedside
--- NOTE | 2020-02-11 12:29 | NUR ---
patient is currently being dialyzed
--- NOTE | 2020-02-11 12:36 | NUR ---
gabi ashley aware of critical procal level, no new orders received
--- NOTE | 2020-02-11 15:05 | NUR ---
transfer to 3W note - SAP ENTERPRISE PORTAL CONSULTANT patient remains verbal, A/Ox2, attached to 2L O2. downgraded to room 326-1, DPMILIND Phillips aware, receiving RN at bedside. No belongings. Medications with patient. Endorsed nectar thick liquids with thickening powder at bedside. HARPER midline intact and patent.
--- NOTE | 2020-02-11 15:10 | NUR ---
RN NOTES PATIENT TRANSFERRED FROM ICU A/O X3, ON O2-2L NC, PATIENT WAS REFUSED PAIN AT THIS TIME TOTAL CARE, INFUSING VANCOMYCIN 100 ML/HR ON RIGHT MIDLINE INTACT, C/S TAKEN BP 161/78, P-84, PATIENT HAS EDEMA BILATERAL LOWER EXTREMITIES, UPPER ARMS, AND SCROTAL AREA. ASSIST TURN AND REPOSTION Q 2 HR, PUT SIGN NO BP ON LEFT ARM BECAUSE OF HD SHUNT. CALL LIGHT WITHIN TO REACH, ELEVATED EXTREMITIES USING PILLOWS.
[2020-02-11] MEDS: VANCOMYCIN POST DIALYSIS 500MG IV PRN ×2 (15:46)
[2020-02-11] MEDS: SOD FERRIC GLUC 125 MG in IV NS 0.9% 100 ML IV SCH (16:18)
--- NOTE | 2020-02-11 18:00 | NUR ---
RN NOTES PATIENT STABLE IN THE BED A/O X3, NO ACUTE RESPIRATORY DISTRESS, ADMINISTERED SCHEDULED MEDICATION, V/S SABLE, ASSIST TURN AND REPOSTION Q 2 HR, CALL LIGHT WITHIN TO READ. GET ASSIST FEEDING BY GEAR ROLLER. CALL LIGHT WITHIN TO REACH, ENDORSED ONCOMING NURSE FOLLOW PLAN OF CARE.
--- NOTE | 2020-02-11 19:30 | NUR ---
BOX WORKER OPENING NOTE RECEIVED PATIENT IN BED. A/OX2. ON OXYGEN 2L/MIN VIA NASAL CANNULA. RESPIRATIONS ARE EVEN AND UNLABORED. NO S/S SOB NOTED. NO C/O PAIN AT THIS TIME. EXTERNAL TELE MONITOR READS SINUS RHYTHM HR 92. IN NO APPARENT DISTRESS. [place] CATHETER IS PRESENT, DRAINING TO GRAVITY, OUTPUT IS YELLOW AND CLEAR. IV ACCESS IN HARPER MIDLINE RUNNING TKO. PARIS WITH AV FISTULA POSITIVE THRILL AND BRUIT. BED IS LOW AND LOCKED, HOB ELEVATED IN HIGH FOWLERS, SIDE RIAL SUP X3, RITCHIE LIGHT WITHIN REACH. WILL CONTINUE TO MONITOR.
[2020-02-12] VITALS (8 sets, daily range): BP systolic 131–157; BP diastolic 72–84
[2020-02-12] MEDS: PIPERACILLIN /TAZOBACTAM 2.25 G in IV D5W 50 ML IV SCH ×3 (03:43→20:23)
--- NOTE | 2020-02-12 07:05 | NUR ---
LEMON GROWER CLOSING NOTE PATIENT IN BED. A/OX2. ON OXYGEN 2L/MIN VIA NASAL CANNULA. RESPIRATIONS ARE EVEN AND UNLABORED. NO S/S SOB NOTED. NO C/O PAIN. EXTERNAL TELE MONITOR READS SINUS RHYTHM. NO DISTRESS. [place] CATHETER IS MAINTAINED DRAINING TO GRAVITY, OUTPUT IS YELLOW AND CLEAR. IV ACCESS RIGHT FOREARM #20 PATENT AND SALINE LOCKED. BED REMAINS LOW AND LOCKED, HOB ELEVATED IN HIGH FOWLERS, SIDE RIAL SUP X3, CALL LIGHT WITHIN REACH. WILL ENDORSE TO NEXT SHIFT.
--- NOTE | 2020-02-12 07:30 | NUR ---
GALLEY WORKER OPENING NOTE Received patient in bed, A&O x 2. VSS, afebrile, no SOB noted. Breathing even and non-labored on 2L oxygen vis NC. Patient denies pain at this time. On tele monitor, reading SR HR 85. IV access noted in R forearm #20g, patent, intact, and flushing well. Bilateral mittens are put on pt's hands, hotel night auditor nurse reports that patient tries to pull out their IV. Daily catheter present, draining to gravity. Urine clear and yellow. AV fistula noted on [place]IS, bruit and thrill present. Fall precautions maintained. Will continue with current medical management. Addendum: 02/12/20 at 1745 by PAULINA ATKINSON RN CORRECTION: Wrong patient documentation regarding restraints. Patient does not have any restraints upon AM assessment.
[2020-02-12] MEDS: LEVOTHYROXINE SODIUM 100 MCG TABLET PO SCH (08:25)
[2020-02-12] MEDS: ALLOPURINOL 100 MG TABLET PO SCH (08:25)
[2020-02-12] MEDS: PANTOPRAZOLE 40 MG TABLET.DR PO SCH (08:25)
[2020-02-12] MEDS: GABAPENTIN 300 MG CAPSULE PO SCH ×2 (08:25→16:48)
[2020-02-12] MEDS: METOPROLOL TARTRATE 50 MG TABLET PO SCH ×2 (08:26→20:29)
[2020-02-12] MEDS: AMLODIPINE BESYLATE 10 MG TABLET PO SCH (08:26)
[2020-02-12] MEDS: hydrALAZINE HCL 50 MG TABLET PO SCH ×3 (08:27→16:52)
[2020-02-12] MEDS: NITROGLYCERIN 30 GM TUBE TP SCH ×2 (08:31→20:24)
[2020-02-12] MEDS: Z GUARD REMEDY 2 OZ OINT TP SCH ×2 (08:33→20:25)
[2020-02-12] MEDS: MUPIROCIN OINT 2% 22 GM TUBE SCH ×2 (08:35→20:25)
--- NOTE | 2020-02-12 18:23 | NUR ---
TELE/RN CLOSING NOTES Patient resting comfortably in bed, A&O x 2. VSS, remains afebrile, no SOB noted. Breathing even and non-labored on 2L oxygen via NC, saturating at 93%. Patient has no complaints of pain/discomfort at this time. On tele monitor, reading SR, HR 80. IV access noted in R forearm #20g, patent, intact, and flushing well. AV fistula noted on [place], bruit and thrill present. Sensation from all peripheral extremities intact. Daily catheter present, patent and intact, and draining to gravity well. Urine clear and yellow. Fall precautions maintained. Will endorse to slot shift supervisor nurse.
--- NOTE | 2020-02-12 20:00 | NUR ---
RADIATION THERAPIST OPENING NOTE RECEIVED PATIENT IN BED. A/OX2. ON OXYGEN 2L/MIN VIA NASAL CANNULA. RESPIRATIONS ARE EVEN AND UNLABORED. NO S/S SOB NOTED. NO C/O PAIN AT THIS TIME. TELE MONITOR READS SINUS RHYTHM HR 72. IN NO APPARENT DISTRESS. [place] CATHETER IS PRESENT, DRAINING TO GRAVITY, OUTPUT IS YELLOW AND CLEAR. IV ACCESS IN RIGHT FA RUNNING TKO. [place] WITH AV FISTULA POSITIVE THRILL AND BRUIT. BED IS LOW AND LOCKED, HOB ELEVATED IN HIGH FOWLERS, SIDE RIAL SUP X3, RITCHIE LIGHT WITHIN REACH. WILL CONTINUE TO MONITOR.
[2020-02-13] VITALS: BP 139/74
--- NOTE | 2020-02-13 | NUR ---
TELE/RN CONTINUITY OF CARE NOTE RECEIVED ENDORSEMENT FROM LUIS GOMEZ FOR PABLITO FOR PATIENT WHO IS RESTING IN BED ON TELE MONITORING WITH SR AT 68, PATIENT ASLEEP BUT AROUSES EASILY ON NASAL CANULA AT 2 LITER. RESPIRATIONS EVEN AND UNLABORED, SKIN WARM TO TOUCH [place] CATHETER DRAINING YELLOW COLORED URINEM IV SITE ON RFA GAUGE 20 PATENT, ON SCHEDULED ANTIBIOTIC ZOSYN AT 0400 AT EVERY 8 HOURS, WITH AV FISTULA, OBSERVED THRILL AND BRUIT. BED LOCKED, CALL LIGHTS WITHIN REACH. WILL MONITOR.
[2020-02-13 00:05] VITALS: BP 140/74
[2020-02-13] MEDS: PIPERACILLIN /TAZOBACTAM 2.25 G in IV D5W 50 ML IV SCH ×3 (03:06→20:52)
[2020-02-13 04:15] VITALS: BP 135/81
--- NOTE | 2020-02-13 06:32 | NUR ---
326-1 TELE/RN NOTES PATIENT IN BED, SLEPT DURING THE NIGHT,ALERT X 2 ON OXYGEN VIA NC BREATHING EVEN AND UNLABORED, MONITORED FOR ANY CHANGES, ATTENDED TO ALL NEEDS, ON [place] DRAINING URINE. WILL ENDORSE TO AM RN FOR PABLITO.
[2020-02-13 08:00] VITALS: BP 134/79
[2020-02-13] MEDS: GABAPENTIN 300 MG CAPSULE PO SCH ×2 (08:31→17:03)
[2020-02-13] MEDS: PANTOPRAZOLE 40 MG TABLET.DR PO SCH (08:31)
[2020-02-13] MEDS: hydrALAZINE HCL 50 MG TABLET PO SCH ×3 (08:32→17:04)
[2020-02-13] MEDS: METOPROLOL TARTRATE 50 MG TABLET PO SCH ×2 (08:32→21:18)
[2020-02-13] MEDS: AMLODIPINE BESYLATE 10 MG TABLET PO SCH (08:32)
[2020-02-13] MEDS: LEVOTHYROXINE SODIUM 100 MCG TABLET PO SCH (08:32)
[2020-02-13] MEDS: MUPIROCIN OINT 2% 22 GM TUBE SCH ×2 (08:33→21:00)
[2020-02-13] MEDS: Z GUARD REMEDY 2 OZ OINT TP SCH ×2 (08:33→21:17)
[2020-02-13] MEDS: ALLOPURINOL 100 MG TABLET PO SCH (08:33)
[2020-02-13] MEDS: NITROGLYCERIN 30 GM TUBE TP SCH ×2 (08:34→21:17)
[2020-02-13 12:24] LABS: ALBUMIN 1.7 g/dL (3.4-5.0); BILIRUBIN,TOTAL 0.4 mg/dL (0.2-1.0); CALCIUM, SERUM 8.1 mg/dL (8.5-10.1); CREATININE 4.5 mg/dL (0.6-1.3); MAGNESIUM 1.9 mg/dL (1.8-2.4); POTASSIUM 3.5 mmol/L (3.5-5.1); TOTAL PROTEIN, SERUM 5.3 g/dL (6.4-8.2)
[2020-02-13 12:29] LABS: BASOPHILS # (AUTO) 0.1 /CMM (0.0-0.2); BASOPHILS % (AUTO) 0.4 % (0.0-2.0); EOSINOPHILS % (AUTO) 1.8 % (0.0-6.0); HEMATOCRIT 29 % (39-51); HEMOGLOBIN 9.2 g/dL (13.5-17.5); LYMPHOCYTES # (AUTO) 0.8 /CMM (0.8-4.8); MEAN CORPUSCULAR HGB CONC 32 g/dl (31.0-36.0); MEAN CORPUSCULAR VOLUME 98 fL (80-96); MONOCYTES % (AUTO) 6.8 % (2.0-12.0); NEUTROPHILS # (AUTO) 13.2 /CMM (1.8-8.9); PLATELET COUNT (AUTO) 190 /CMM (150-450); RED BLOOD CELL COUNT(AUTO) 2.93 MIL/uL (4.5-6.0); WHITE BLOOD COUNT (AUTO) 15.4 K/uL (4.3-11.0)
--- NOTE | 2020-02-13 14:28 | NUR ---
RN NOTE Patient started HD at this time.
[2020-02-13 16:00] VITALS: BP 123/70
--- NOTE | 2020-02-13 17:00 | NUR ---
RN NOTE HD completed, 1L out. Patient remains stable, VS stable.
--- NOTE | 2020-02-13 19:00 | NUR ---
RN CLOSING NOTE Patient is resting in bed, A/O x2, with periods of confusion and agitation. Showing no signs of acute distress or SOB, saturating >95% on 2L NC. Patient has no complaints of pain during my shift. IV line in the right wrist #22g is clean and intact running TKO. Daily catheter noted with 0ml urine output due to HD today. 1 episode of watery diarrhea this afternoon. All patient needs met, all due medications given. Patient kept clean and dry throughout shift. Fall, safety and aspiration precautions enforced. Bed is in lowest position, side rails x3 in upright position, call light is within reach. Endorsed to warehouse worker 2nd shift RN for PABLITO.
--- NOTE | 2020-02-13 19:30 | NUR ---
MS RN RECEIVE PT A/O X 2 NO C/O PAIN, NO S/S OF DISTRESS, [place] AV FISTULA INTACT, SAFETY MEASURES AT ALL TIMES. WILL CONT TO MONITOR.
[2020-02-13 20:00] VITALS: BP 150/76
[2020-02-13] MEDS: ACETAMINOPHEN 325 MG TABLET PO PRN (21:16)
[2020-02-14] MEDS: PIPERACILLIN /TAZOBACTAM 2.25 G in IV D5W 50 ML IV SCH ×3 (03:30→20:59)
--- NOTE | 2020-02-14 06:05 | NUR ---
MS RN PT ASLEEP AND EASILY AWAKEN, NO S/S OF DISTRESS. NURSING CARE RENDERED, KEPT CLEAN, DRY AND COMFORTABLE AT ALL TIMES. ALL NEEDS ATTENDED AND ANTICIPATED, REPOSITION EVERY 2 HOURS. OFFLOAD HEELS AND ELBOWS AT ALL TIMES. SAFETY MEASURES AT ALL TIMES. WILL ENDORSE TO NEXT SHIFT.
[2020-02-14 06:49] LABS: BASOPHILS # (AUTO) 0.1 /CMM (0.0-0.2); BASOPHILS % (AUTO) 0.4 % (0.0-2.0); EOSINOPHILS % (AUTO) 2.4 % (0.0-6.0); HEMATOCRIT 28 % (39-51); HEMOGLOBIN 9.2 g/dL (13.5-17.5); LYMPHOCYTES # (AUTO) 0.8 /CMM (0.8-4.8); LYMPHOCYTES % (AUTO) 5.1 % (20.0-44.0); MEAN CORPUSCULAR HGB CONC 33 g/dl (31.0-36.0); MEAN CORPUSCULAR VOLUME 98 fL (80-96); MONOCYTES # (AUTO) 1.3 /CMM (0.1-1.30); NEUTROPHILS # (AUTO) 12.4 /CMM (1.8-8.9); NEUTROPHILS % (AUTO) 83.1 % (43.0-81.0); PLATELET COUNT (AUTO) 182 /CMM (150-450); RED BLOOD CELL COUNT(AUTO) 2.88 MIL/uL (4.5-6.0); WHITE BLOOD COUNT (AUTO) 14.9 K/uL (4.3-11.0)
--- NOTE | 2020-02-14 08:00 | NUR ---
m/s meteorological technician: initial assessment received pt in bed awake, a/ox2 with confusion and disorientation to place and situation. pt easily irritated. reality orientation provided prn. no c/o pain or any discomfort. will continue to monitor.
[2020-02-14 08:35] VITALS: BP 156/72
[2020-02-14] MEDS: METOPROLOL TARTRATE 50 MG TABLET PO SCH ×3 (08:50→21:53)
[2020-02-14] MEDS: AMLODIPINE BESYLATE 10 MG TABLET PO SCH ×2 (08:50→09:01)
[2020-02-14] MEDS: hydrALAZINE HCL 50 MG TABLET PO SCH ×4 (08:50→17:01)
[2020-02-14] MEDS: GABAPENTIN 300 MG CAPSULE PO SCH ×2 (08:51→17:01)
[2020-02-14] MEDS: LEVOTHYROXINE SODIUM 100 MCG TABLET PO SCH (08:51)
[2020-02-14] MEDS: Z GUARD REMEDY 2 OZ OINT TP SCH ×2 (08:51→21:25)
[2020-02-14] MEDS: PANTOPRAZOLE 40 MG TABLET.DR PO SCH (08:51)
[2020-02-14] MEDS: ALLOPURINOL 100 MG TABLET PO SCH (08:51)
[2020-02-14] MEDS: NITROGLYCERIN 30 GM TUBE TP SCH ×3 (08:51→21:25)
[2020-02-14] MEDS: MUPIROCIN OINT 2% 22 GM TUBE SCH ×2 (08:53→21:25)
--- NOTE | 2020-02-14 09:48 | NUR ---
m/s flight service agent: nephro f/u seen by dr. pollack with order for d'c planning with additional: needs hd arranged. contact dr. renee. orders relayed to case management.
--- NOTE | 2020-02-14 10:00 | NUR ---
m/s legislative director: notes pt refusing to be turned and repositioned. unable to assess his bottom; only picture in chart and describe in skin intervention. also noted chest discoloration, but pt refused photo. pt easily irritated when teaching and education provided. instructed to call for assistance.
--- NOTE | 2020-02-14 12:00 | NUR ---
m/s senior applications engineer: notes still pt refusing care and repositioning when staff offered. lunch served. hob elevated. instructed to call for assistance.
[2020-02-14 12:54] LABS: BAND % (MANUAL) 2 % (0.0-5.0); EOSINOPHILS % (MANUAL) 1 % (0-4); LYMPHOCYTES % (MANUAL) 7 % (16-48); MONOCYTES % (MANUAL) 5 % (0-11.0); MYELOCYTES % 3 % (0-0); NEUTROPHILS % (MANUAL) 82 (42-76)
--- NOTE | 2020-02-14 14:00 | NUR ---
m/s fagot maker: notes pt still refuses to be turned and repositioned when staff offered. instructed to call for assistance. will continue to monitor.
--- NOTE | 2020-02-14 15:40 | NUR ---
m/s residential sales rep: notes pt refused pm care; still refuses to be turned and repositioned. instructed to call for assistance. will continue to monitor.
--- NOTE | 2020-02-14 16:00 | NUR ---
m/s employment coach: notes pt still refused to be turned and repositioned. pt prefers to lie supine. pt remains easily irritable. will continue to monitor.
[2020-02-14 16:56] VITALS: BP 148/71
--- NOTE | 2020-02-14 18:15 | NUR ---
m/s traffic assistant: notes pt verbally abusive when incontinent of bowel rendered. kept clean and dry. pt is rushing staff to do the job faster. needs attended. instructed to call for assistance.
--- NOTE | 2020-02-14 19:05 | NUR ---
m/s crane hooker: notes report given to mick (rn) for continuity of care.
--- NOTE | 2020-02-14 19:25 | NUR ---
MS RN RECEIVE PT A/O X 1-2 NOT IN DISTRESS, [place] AV FISTULA INTACT, STABLE. SAFETY MEASURES AT ALL TIMES. WILL CONT TO MONITOR.
[2020-02-14 20:00] VITALS: BP 143/77
[2020-02-14] MEDS: ACETAMINOPHEN 325 MG TABLET PO PRN (21:52)
[2020-02-15] MEDS: PIPERACILLIN /TAZOBACTAM 2.25 G in IV D5W 50 ML IV SCH ×3 (03:16→20:08)
--- NOTE | 2020-02-15 05:59 | NUR ---
MS RN PT ASLEEP AND EASILY AWAKEN IN BED, AM CARE RENDERED, NO C.O OF PAIN, NO S/S OF DISTRESS. KEPT CLEAN, DRY AND COMFORTABLE AT ALL TIMES. REPOSITION EVERY 2 HOURS. OFFLOAD HEELS AND ELBOWS AT ALL TIMES. SAFETY MEASURES AT ALL TIMES. WILL ENDORSE TO NEXT SHIFT.
[2020-02-15 08:00] VITALS: BP 148/90
[2020-02-15] MEDS: METOPROLOL TARTRATE 50 MG TABLET PO SCH ×2 (09:17→20:09)
[2020-02-15] MEDS: ALLOPURINOL 100 MG TABLET PO SCH (09:17)
[2020-02-15] MEDS: PANTOPRAZOLE 40 MG TABLET.DR PO SCH (09:17)
[2020-02-15] MEDS: LEVOTHYROXINE SODIUM 100 MCG TABLET PO SCH (09:17)
[2020-02-15] MEDS: hydrALAZINE HCL 50 MG TABLET PO SCH ×3 (09:18→17:23)
[2020-02-15] MEDS: AMLODIPINE BESYLATE 10 MG TABLET PO SCH (09:18)
[2020-02-15] MEDS: GABAPENTIN 300 MG CAPSULE PO SCH ×2 (09:18→17:23)
[2020-02-15] MEDS: Z GUARD REMEDY 2 OZ OINT TP SCH ×2 (09:18→20:12)
[2020-02-15] MEDS: NITROGLYCERIN 30 GM TUBE TP SCH ×2 (09:29→20:09)
[2020-02-15] MEDS: MUPIROCIN OINT 2% 22 GM TUBE SCH ×2 (09:35→20:09)
[2020-02-15 16:00] VITALS: BP 142/66
--- NOTE | 2020-02-15 16:00 | NUR ---
RN NOTE HD completed with 1L out. Vital signs stable, will continue to monitor.
--- NOTE | 2020-02-15 18:30 | NUR ---
RN CLOSING NOTE Patient is resting in bed, A/O x2, with periods of confusion and agitation, showing no signs of acute distress or SOB, saturating >95% on 2L NC. New IV line inserted in the RFA #20g running TKO. PARIS AV shunt noted. Daily catheter noted with 75cc output. Patient has HD today with 1L out. All patient need met, all due medications given, patient kept clean and dry throughout shift. Fall safety and aspiration precautions enforced. Will endorse to security shift manager.
--- NOTE | 2020-02-15 19:05 | NUR ---
RN OPENING NOTES Received patient A/O x2, awake on bed. Denies any discomfort at this time. On O2 via NC @ 2LPM, saturating well. Kept on bed clean, dry and comfortable. Will continue to monitor accordingly.
--- NOTE | 2020-02-15 19:28 | NUR ---
MS RN RECEIVE PT IN BED OEPNS EYES TO VERBAL STIMULATION, NOT IN DISTRESS, STABLE. SAFETY MEASURES AT ALL TIMES. WILL CONT TO MONITOR. Addendum: 02/15/20 at 1929 by JASMIN CAN RN MISTAKEN ENTRY THIS DOCUMENTATION IS FOR DIFFERENT PATIENT PLEASE DISREGARD
[2020-02-15 20:00] VITALS: BP 125/73
[2020-02-16] MEDS: PIPERACILLIN /TAZOBACTAM 2.25 G in IV D5W 50 ML IV SCH ×3 (03:28→20:06)
--- NOTE | 2020-02-16 07:10 | NUR ---
RN CLOSING NOTES Patient comfortably on bed. No complaints made. With confusion noted. Afebrile the whole shift, no new unusualities. All nursing needs attended. Due meds given as ordered. Kept on bed clean, dry and comfortable. Endorsed.
--- NOTE | 2020-02-16 07:35 | NUR ---
RN OPENING NOTE Patient is resting in bed, A/O x2, with periods of confusion and agitation, showing no signs of acute distress or SOB, saturating >95% on 2L NC. IV line in the RFA #20g running TKO. PARIS AV shunt noted. Daily catheter noted with clear yellow output. Bed is in lowest position, side rails x3 in upright position, call light is within reach. Fall safety and aspiration precautions enforced. Will continue with plan of care.
[2020-02-16 08:00] VITALS: BP 144/76
[2020-02-16] MEDS: GABAPENTIN 300 MG CAPSULE PO SCH ×2 (08:58→17:20)
[2020-02-16] MEDS: hydrALAZINE HCL 50 MG TABLET PO SCH ×3 (08:58→17:21)
[2020-02-16] MEDS: ALLOPURINOL 100 MG TABLET PO SCH (08:58)
[2020-02-16] MEDS: AMLODIPINE BESYLATE 10 MG TABLET PO SCH (08:58)
[2020-02-16] MEDS: METOPROLOL TARTRATE 50 MG TABLET PO SCH ×2 (08:58→20:38)
[2020-02-16] MEDS: LEVOTHYROXINE SODIUM 100 MCG TABLET PO SCH (09:02)
[2020-02-16] MEDS: PANTOPRAZOLE 40 MG TABLET.DR PO SCH (09:02)
[2020-02-16] MEDS: MUPIROCIN OINT 2% 22 GM TUBE SCH ×2 (09:04→20:36)
[2020-02-16] MEDS: NITROGLYCERIN 30 GM TUBE TP SCH ×2 (09:04→20:37)
[2020-02-16] MEDS: Z GUARD REMEDY 2 OZ OINT TP SCH ×2 (09:04→20:39)
[2020-02-16 09:55] LABS: BASOPHILS # (AUTO) 0.1 /CMM (0.0-0.2); BASOPHILS % (AUTO) 0.7 % (0.0-2.0); EOSINOPHILS % (AUTO) 1.5 % (0.0-6.0); HEMATOCRIT 29 % (39-51); LYMPHOCYTES # (AUTO) 0.9 /CMM (0.8-4.8); LYMPHOCYTES % (AUTO) 4.9 % (20.0-44.0); MEAN CORPUSCULAR HGB CONC 31 g/dl (31.0-36.0); MEAN CORPUSCULAR VOLUME 100 fL (80-96); MONOCYTES # (AUTO) 1.2 /CMM (0.1-1.30); MONOCYTES % (AUTO) 6.9 % (2.0-12.0); NEUTROPHILS # (AUTO) 15.6 /CMM (1.8-8.9); PLATELET COUNT (AUTO) 221 /CMM (150-450); RED BLOOD CELL COUNT(AUTO) 2.87 MIL/uL (4.5-6.0); WHITE BLOOD COUNT (AUTO) 18.2 K/uL (4.3-11.0)
[2020-02-16 16:00] VITALS: BP 138/72
[2020-02-16] MEDS: NEPRO VAN 237 ML CAN PO SCH (17:00)
--- NOTE | 2020-02-16 18:55 | NUR ---
RN CLOSING NOTE Patient is resting in bed, A/O x2, with periods of confusion and agitation, showing no signs of acute distress or SOB, saturating >95% on 2L NC. IV line in the RFA #20g running TKO. PARIS AV shunt noted. Daily catheter noted with clear yellow output 50cc total. All patient needs met, all due medications given. Patient kept clean and dry throughout shift. Bed is in lowest position, side rails x3 in upright position, call light is within reach. Fall safety and aspiration precautions enforced. Will endorse to night filler.
--- NOTE | 2020-02-16 19:30 | NUR ---
RN OPENING NOTES RECEIVED PATIENT IN BED RESTING ALERT ORIENTED X2 WITH PERIODS OF CONFUSION AND AGITATION. BREATHING NORMAL NO SOB NOTED RESPIRATION EVEN NON LABORED. ON 2L O2 SATURATING WELL 98%. NO S/S OF ACUTE DISTRESS NOTED. PATIENT DENIES ANY PAIN OR DISCOMFORT. IV LINE RT ARM INTACT PATENT FLUSHING WELL.PARIS AV SHUNT INTACT. F/C INTACT PATENT. SAFETY MEASURES IN PLACE,BED IN LOW AND LOCKED POSITION. CALL LIGHT WITHIN REACH. WILL CONT TO MONITOR.
[2020-02-16 20:00] VITALS: BP 119/61
[2020-02-17] MEDS: PIPERACILLIN /TAZOBACTAM 2.25 G in IV D5W 50 ML IV SCH ×3 (04:40→20:38)
--- NOTE | 2020-02-17 07:04 | NUR ---
RN CLOSING NOTES PATIENT RESTED COMFORTABLY IN BED ALERT ORIENTED X2. NO SOB NOTED RESPIRATION EVEN NON LABORED. NO S/S OF ACUTE DISTRESS NOTED. PATIENT DENIES ANY PAIN OR DISCOMFORT. F/C INTACT PATENT. BED BATH GIVEN WOUND CARE DONE. SAFETY MEASURES IN PLACE,BED IN LOW AND LOCKED POSITION. CALL LIGHT WITHIN REACH. WILL ENDORSE TO AM NURSE FOR PABLITO.
[2020-02-17 08:00] VITALS: BP 146/48
[2020-02-17] MEDS: PANTOPRAZOLE 40 MG TABLET.DR PO SCH (08:41)
[2020-02-17] MEDS: GABAPENTIN 300 MG CAPSULE PO SCH ×2 (08:41→16:34)
[2020-02-17] MEDS: LEVOTHYROXINE SODIUM 100 MCG TABLET PO SCH (08:42)
[2020-02-17] MEDS: ALLOPURINOL 100 MG TABLET PO SCH (08:42)
[2020-02-17] MEDS: MUPIROCIN OINT 2% 22 GM TUBE SCH ×2 (08:44→20:53)
[2020-02-17] MEDS: NEPRO VAN 237 ML CAN PO SCH ×2 (08:52→17:00)
[2020-02-17] MEDS: Z GUARD REMEDY 2 OZ OINT TP SCH ×4 (08:53→21:12)
[2020-02-17] MEDS: AMLODIPINE BESYLATE 10 MG TABLET PO SCH (08:53)
[2020-02-17] MEDS: METOPROLOL TARTRATE 50 MG TABLET PO SCH ×2 (08:53→20:57)
[2020-02-17] MEDS: NITROGLYCERIN 30 GM TUBE TP SCH ×2 (08:53→21:02)
[2020-02-17] MEDS: hydrALAZINE HCL 50 MG TABLET PO SCH ×3 (08:53→16:34)
--- NOTE | 2020-02-17 09:00 | NUR ---
m/s licensed reactor operator: notes pt for hd tx today, held all b/p meds. pt made aware.
--- NOTE | 2020-02-17 10:00 | NUR ---
m/s credit counselor: notes pt refusing to be turned and reposition, prefers to lie supine. will continue to monitor.
--- NOTE | 2020-02-17 12:00 | NUR ---
m/s jewel oliving machine operator: notes meghna (hd) at bedside for hd treatment.
--- NOTE | 2020-02-17 13:06 | NUR ---
m/s operations accountant: notes hd in progress at this time. will continue to monitor.
[2020-02-17 14:00] VITALS: BP 160/70
--- NOTE | 2020-02-17 14:00 | NUR ---
m/s auto body repair teacher: notes hd completed with 1l removed per meghna (hd nurse). no distress noted. will continue to monitor. Addendum: 02/17/20 at 1623 by BROOKE MATTN refused to be repositioned.
--- NOTE | 2020-02-17 14:57 | NUR ---
m/s runner on: notes barbosa catheter removed as ordered, dedra. well. instructed to call for assistance.
[2020-02-17 16:00] VITALS: BP 150/66
--- NOTE | 2020-02-17 16:00 | NUR ---
m/s manager of training: notes pt refused repositioning, still prefers to lie supine, pt only to get turned when incontinent of bowel rendered. will continue to monitor.
--- NOTE | 2020-02-17 17:30 | NUR ---
m/s combine mechanic: notes having dinner at this time. needs attended. instructed to call for assistance. will continue to monitor.
--- NOTE | 2020-02-17 19:05 | NUR ---
m/s files supervisor: notes report given to fede (john) for continuity of care.
--- NOTE | 2020-02-17 19:10 | NUR ---
MS/RN OPENING NOTES: RECEIVED PT. A/OX2. VERBALLY RESPONSIVE AND ABLE TO MAKE NEEDS KNOWN. HAS PERIODS OF CONFUSION AND AGITATION. ON 2L OF OXYGEN VIA NC. BREATHING EVEN AND UNLABORED. NO SOB NOTED. NO COMPLAINS OF PAIN AT THIS TIME. IV ON THE RIGHT WRIST #20G NOTED. SAFETY MEASURES IN PLACE. BED IN LOW, LOCKED POSITION WITH SR UP X2. WILL CONTINUE MONITORING ACCORDINGLY.
[2020-02-17 20:00] VITALS: BP 146/68
--- NOTE | 2020-02-17 23:05 | NUR ---
MS/RN NOTES: IV ON THE RIGHT WRIST IS INFILTRATED. APPLIED ICE PACK TO REDUCE SWELLING. STARTED A NEW LINE ON THE RIGHT AC #20G, INTACT, PATENT AND FLUSHING WELL. WILL KEEP MONITORING.
[2020-02-18] VITALS (8 sets, daily range): BP systolic 119–145; BP diastolic 59–73
[2020-02-18] MEDS: PIPERACILLIN /TAZOBACTAM 2.25 G in IV D5W 50 ML IV SCH ×3 (04:07→20:49)
--- NOTE | 2020-02-18 06:32 | NUR ---
MS/RN CLOSING NOTES: PATIENT REMAINS IN BED ALERT ORIENTED X2. REFUSED TO TURNED AND REPOSITIONED. EDUCATED ON RISKS AND BENEFITS X3, STILL REFUSED. NO SOB NOTED RESPIRATION EVEN NON LABORED. CURRENTLY ON ROOM AIR, SATURATING AT 95-96%. NO S/S OF ACUTE DISTRESS NOTED. NO C/O PAIN AT THIS TIME. SAFETY MEASURES KEPT IN PLACE, BED IN LOW AND LOCKED POSITION. CALL LIGHT WITHIN REACH. ALL NURSING NEEDS MET AND RENDERED, WILL ENDORSE TO MORNING SHIFT FOR PABLITO.
[2020-02-18 06:42] LABS: BASOPHILS # (AUTO) 0.1 /CMM (0.0-0.2); HEMATOCRIT 24 % (39-51); HEMOGLOBIN 7.9 g/dL (13.5-17.5); LYMPHOCYTES # (AUTO) 0.9 /CMM (0.8-4.8); LYMPHOCYTES % (AUTO) 7.7 % (20.0-44.0); MEAN CORPUSCULAR HGB CONC 33 g/dl (31.0-36.0); MEAN CORPUSCULAR VOLUME 99 fL (80-96); MONOCYTES % (AUTO) 8.6 % (2.0-12.0); NEUTROPHILS # (AUTO) 9.8 /CMM (1.8-8.9); NEUTROPHILS % (AUTO) 80.7 % (43.0-81.0); PLATELET COUNT (AUTO) 226 /CMM (150-450); RED BLOOD CELL COUNT(AUTO) 2.45 MIL/uL (4.5-6.0); WHITE BLOOD COUNT (AUTO) 12.1 K/uL (4.3-11.0)
[2020-02-18 07:08] LABS: CALCIUM, SERUM 7.4 mg/dL (8.5-10.1); POTASSIUM 2.9 mmol/L (3.5-5.1)
--- NOTE | 2020-02-18 07:30 | NUR ---
MS/RN OPENING NOTES Received patient in bed, A&O x 2. VSS, afebrile, no SOB noted. Breathing even and non-labored on RA, no SOB noted. Patient denies pain/discomfort at this time. No cardiac distress noted. IV access noted in R AC #20g, patent, intact, and flushing well. Patient is incontinent, wears diaper. AV fistula noted on PAR[place], bruit and thrill present. Sensation from all peripheral extremities intact. Fall precautions maintained. Will continue with current medical management.
[2020-02-18] MEDS: hydrALAZINE HCL 50 MG TABLET PO SCH ×3 (08:03→16:17)
[2020-02-18] MEDS: LEVOTHYROXINE SODIUM 100 MCG TABLET PO SCH (08:03)
[2020-02-18] MEDS: AMLODIPINE BESYLATE 10 MG TABLET PO SCH (08:03)
[2020-02-18] MEDS: PANTOPRAZOLE 40 MG TABLET.DR PO SCH (08:03)
[2020-02-18] MEDS: METOPROLOL TARTRATE 50 MG TABLET PO SCH ×2 (08:03→20:59)
[2020-02-18] MEDS: ALLOPURINOL 100 MG TABLET PO SCH (08:04)
[2020-02-18] MEDS: GABAPENTIN 300 MG CAPSULE PO SCH ×2 (08:04→16:17)
[2020-02-18] MEDS: NEPRO VAN 237 ML CAN PO SCH ×2 (08:04→16:15)
[2020-02-18] MEDS: MUPIROCIN OINT 2% 22 GM TUBE SCH ×2 (08:05→21:01)
[2020-02-18] MEDS: Z GUARD REMEDY 2 OZ OINT TP SCH ×4 (08:05→21:16)
[2020-02-18] MEDS: NITROGLYCERIN 30 GM TUBE TP SCH ×2 (08:06→20:59)
[2020-02-18] MEDS ORDERED: POTASSIUM CHLORIDE 20 MEQ TAB.PRT.SR PO ONE ×2 (10:30→11:00)
[2020-02-18] MEDS ORDERED: PEG 3350/NA SULF,BICARB,CL/KCL 4,000 ML BOTTLE PO ONE (11:30)
[2020-02-18] MEDS: ACETAMINOPHEN 325 MG TABLET PO PRN (12:22)
--- NOTE | 2020-02-18 14:53 | NUR ---
MS/RN NOTES Blood transfusion ongoing. No adverse reactions seen. Patient denies fever, SOB, back pain, headache, chills, chest pain, hives & itching, flushing, nausea. No pulmonary edema, hypotension, hematuria, bleeding, tachycardia, and shock noted. VS during 15 minutes of infusion: T 98.1, RR 18, HR, 83, BP 135/67. Will continue to monitor throughout blood infusion.
--- NOTE | 2020-02-18 15:45 | NUR ---
MS/RN NOTES Blood transfusion still ongoing. No pulmonary edema, s/s of bleeding, tachycardia, or shock noted. Patient denies any fever, SOB, back pain, headache, chills, chest pain, hives & itching, flushing, or nausea. Will continue to monitoring patient during transfusion.
--- NOTE | 2020-02-18 17:23 | NUR ---
MS/RN NOTES Blood transfusion ended. Patient denies the following s/s: fever, SOB, headache, back pain, chills, chest pain, hives & itching, flushing, or nausea. No pulmonary edema, s/s of bleeding, tachycardia, or shock noted. Postprocedure VS: T 98/6, HR 82. RR 18. BP 125/69. Will continue to monitor for any changes in condition.
--- NOTE | 2020-02-18 18:38 | NUR ---
MS/RN CLOSING NOTES Patient lying comfortably in bed, A&O x2. VSS, remains afebrile, no SOB noted. Breathing even and non-labored on RA. No complaints of pain/discomfort at this time. No cardiac distress noted. IV access on the right AC #20g patent, intact, and flushing well. Sensation from all peripheral extremities remain intact. Fall precautions maintained. Will endorse to pecan cleaner nurse.
--- NOTE | 2020-02-18 19:30 | NUR ---
MS/RN OPENING NOTES: RECEIVED PT. A/OX2. VERBALLY RESPONSIVE AND ABLE TO MAKE NEEDS KNOWN. HAS PERIODS OF CONFUSION AND AGITATION. TOLERATING RA AT THIS TIME. SATURATING AT 95%. BREATHING EVEN AND UNLABORED. NO SOB NOTED. NO COMPLAINS OF PAIN AT THIS TIME. IV ON THE RIGHT AC #20G NOTED. POSSIBLE EGD AND COLONOSCOPY TOMORROW MORNING. GOLYTLE PRESENT AT BEDSIDE. DAY SHIFT RN ENDORSED THAT PT HAS TO FINISH GOLYTLE. SAFETY MEASURES IN PLACE. BED IN LOW, LOCKED POSITION WITH SR UP X2. WILL CONTINUE MONITORING ACCORDINGLY.
--- NOTE | 2020-02-18 22:25 | NUR ---
MS/RN NOTES: LEFT DR. BUNCH A MESSAGE REGARDING PT. NOT BEING CLEAR FOR EGD AND COLONOSCOPY THAT IS SCHEDULED TOMORROW AT 0730. PT IS REFUSING TO DRINK THE GOLYTLE. WILL PLACE PT ON NPO AFTER MIDNIGHT. WAITING FOR DR. BUNCH'S RESPONSE AND ORDERS.
--- NOTE | 2020-02-18 23:00 | NUR ---
MS/RN NOTES: PT DRANK TOTAL OF 1000ML OF GOLYTLE. DR. BUNCH INFORMED. STILL NO ORDERS
[2020-02-19] MEDS: PIPERACILLIN /TAZOBACTAM 2.25 G in IV D5W 50 ML IV SCH ×2 (04:02→12:05)
[2020-02-19 06:42] LABS: BASOPHILS # (AUTO) 0.1 /CMM (0.0-0.2); BASOPHILS % (AUTO) 1.2 % (0.0-2.0); EOSINOPHILS % (AUTO) 3.2 % (0.0-6.0); HEMATOCRIT 27 % (39-51); HEMOGLOBIN 8.8 g/dL (13.5-17.5); LYMPHOCYTES # (AUTO) 0.8 /CMM (0.8-4.8); LYMPHOCYTES % (AUTO) 7.4 % (20.0-44.0); MEAN CORPUSCULAR HGB CONC 33 g/dl (31.0-36.0); MEAN CORPUSCULAR VOLUME 95 fL (80-96); MONOCYTES % (AUTO) 9.6 % (2.0-12.0); NEUTROPHILS # (AUTO) 8.1 /CMM (1.8-8.9); NEUTROPHILS % (AUTO) 78.6 % (43.0-81.0); PLATELET COUNT (AUTO) 272 /CMM (150-450); RED BLOOD CELL COUNT(AUTO) 2.87 MIL/uL (4.5-6.0); WHITE BLOOD COUNT (AUTO) 10.3 K/uL (4.3-11.0)
--- NOTE | 2020-02-19 06:45 | NUR ---
MS/RN NOTES; OR CALLED REGARDING PT'S CONSENTS AND NPO STATUS. UPDATED AND MADE AWARE THAT ALL CONSENTS ARE SIGNED AND READY.
[2020-02-19] MEDS ORDERED: ANESTHESIA TRAY IN PYXIS 1 EA TRAY MC ONE (06:54)
--- NOTE | 2020-02-19 06:55 | NUR ---
MS/RN CLOSING NOTES: PATIENT REMAINS IN BED ALERT ORIENTED X2. STABLE ON ROOM AIR. NO SOB NOTED RESPIRATION EVEN NON LABORED. SATURATING AT 95-96%. NO S/S OF ACUTE DISTRESS NOTED. NO C/O PAIN AT THIS TIME. TOTAL INTAKE OF 1L GOLYTLE. KEPT PT. NPO AFTER MIDNIGHT. SAFETY MEASURES KEPT IN PLACE, BED IN LOW AND LOCKED POSITION. PT HAS 1BM LAST NIGHT; 2X VOID. ALL CONSENTS SIGNED AND READY IN THE CHART. PREOP CHECKLIST ALSO COMPLETED. ENDORSED TO DAY SHIFT RN. CALL LIGHT WITHIN REACH. ALL NURSING NEEDS MET AND RENDERED, WILL ENDORSE TO MORNING SHIFT FOR PLAN OF CARE.
--- NOTE | 2020-02-19 07:05 | NUR ---
MS/RN OPENING NOTES Received patient in bed, A&O x 2. VSS, afebrile, no SOB noted, ready for procedure. Patient denies pain/discomfort at this time. No s/s of cardiac or respiratory distress at this time. IV access noted in R AC #20g, patent, intact, and flushing well. AV fistula noted on PAR[place], bruit and thrill present. Sensation from all peripheral extremities intact. Patient NPO since midnight. Fall precautions maintained. Will continue with current plan of care.
[2020-02-19 07:12] LABS: ALBUMIN 1.5 g/dL (3.4-5.0); ALKALINE PHOSPHATASE 224 U/L (46-116); ASPARTATE AMINOTRANSFERASE 23 U/L (15-37); BILIRUBIN,TOTAL 0.5 mg/dL (0.2-1.0); CALCIUM, SERUM 7.6 mg/dL (8.5-10.1); CARBON DIOXIDE 27 mmol/L (21-32); CHLORIDE 102 mmol/L (98-107); CREATININE 4.3 mg/dL (0.6-1.3); GLUCOSE 79 mg/dL (74-106); MAGNESIUM 1.7 mg/dL (1.8-2.4); POTASSIUM 3.2 mmol/L (3.5-5.1); SODIUM SERUM 139 mmol/L (136-145); TOTAL PROTEIN, SERUM 5.5 g/dL (6.4-8.2); UREA NITROGEN, BLOOD 29 mg/dL (7-18)
--- NOTE | 2020-02-19 07:15 | NUR ---
MS/RN NOTES Patient sent for procedure with pre-op checklist and consents signed. Kept NPO, VSS, no complaints of pain/discomfort noted.
[2020-02-19 07:20] LABS: ALANINE AMINOTRANSFERASE < 6 U/L (12-78)
[2020-02-19] MEDS: LEVOTHYROXINE SODIUM 100 MCG TABLET PO SCH (07:23)
[2020-02-19] MEDS: PANTOPRAZOLE 40 MG TABLET.DR PO SCH (07:23)
[2020-02-19] MEDS ORDERED: TETRACAINE/BENZOCAINE/BUTAMBEN 56 GM SPRAY TP ONE (07:38)
[2020-02-19] MEDS ORDERED: MIDAZOLAM HCL 2 MG/2ML VIAL ONE (07:44)
[2020-02-19 08:00] VITALS: BP 167/80
--- NOTE | 2020-02-19 08:06 | NUR ---
unable to do Chest xray. Patient in OR as of 714.
[2020-02-19] MEDS: METOPROLOL TARTRATE 50 MG TABLET PO SCH ×3 (08:22→20:54)
[2020-02-19] MEDS: NEPRO VAN 237 ML CAN PO SCH ×3 (08:22→16:31)
[2020-02-19] MEDS: hydrALAZINE HCL 50 MG TABLET PO SCH ×4 (08:22→16:31)
[2020-02-19] MEDS: MUPIROCIN OINT 2% 22 GM TUBE SCH ×3 (08:22→20:53)
[2020-02-19] MEDS: Z GUARD REMEDY 2 OZ OINT TP SCH ×6 (08:23→21:21)
[2020-02-19] MEDS: AMLODIPINE BESYLATE 10 MG TABLET PO SCH ×2 (08:23→09:28)
[2020-02-19] MEDS: NITROGLYCERIN 30 GM TUBE TP SCH ×3 (08:23→20:54)
[2020-02-19] MEDS: ALLOPURINOL 100 MG TABLET PO SCH ×2 (08:23→09:28)
[2020-02-19] MEDS: GABAPENTIN 300 MG CAPSULE PO SCH ×3 (08:23→16:30)
--- NOTE | 2020-02-19 09:00 | NUR ---
MS/RN NOTES Patient returned to floor from EGD procedure. EGD noted gastritis and small hiatal hernia present. VSS, afebrile, no pain/discomfort noted. Breathing even and non-labored. No cardiac distress noted. Post-procedure VS: 176/82, HR 79, SPO2% 94%, T 99.2, RR 18.
--- NOTE | 2020-02-19 10:00 | NUR ---
MS/RN NOTES Patient remains stable after procedure. Hemodialysis ongoing. Breathing even and non-labored on RA, no SOB noted. No cardiac distress noted. Patient has no complaints of pain/discomfort. Will continue to monitor patient for any changes in condition.
[2020-02-19] MEDS ORDERED: POTASSIUM CL. PREMIX PERIPHER. 50 ML IV SCH (10:30)
[2020-02-19] MEDS ORDERED: Magnesium 1GM/D5W 100ML PREMIX 100 ML IV SCH (10:30)
[2020-02-19] MEDS ORDERED: POTASSIUM CHLORIDE 20 MEQ TAB.PRT.SR PO ONE (11:00)
--- NOTE | 2020-02-19 11:30 | NUR ---
MS/RN NOTES Hemodialysis done, 2L output. Patient denies dizziness, nausea, itching, chills, or pain. Will continue to monitor patient for any changes in condition.
[2020-02-19] MEDS: Magnesium 1GM/D5W 100ML PREMIX 100 ML IV SCH ×2 (12:41→14:07)
[2020-02-19 16:00] VITALS: BP 138/66
--- NOTE | 2020-02-19 17:33 | NUR ---
MS/RN CLOSING NOTES Patient resting in bed, A&O x2. Patient remains stable, no complaints of pain or discomfort noted. VSS, afebrile, no SOB noted. Breathing even and non-labored on RA, no respiratory distress noted. IV access on the right AC #20g patent, intact, and flushing well. Sensation from all peripheral extremities remain intact. Fall precautions maintained. Patient tolerating renal diet well. Will endorse to mine shifter nurse.
--- NOTE | 2020-02-19 19:30 | NUR ---
MS RN NOTES RECEIVED ON BED SLEEPING,AROUSABLE TO VERBAL STIMULI.BREATHING REGULAR,NOT IN ANY FORM OF DISTRESS.WITH HEMODIALYSIS TODAY TOOK OUT 2L.WITH PAR[place] AV SHUNT FOR HD TREATMENT,RIGHT AC SALINE LOCK FOR MEDS.S/P EGD TODAY SHOWS GASTRITIS AND SMALL HIATAL HERNIA PRESENT.FALL RISK,BED ON LOWEST POSITION AND LOCKED.CALL LIGHT IN REACH,NEEDS ANTICIPATED.
[2020-02-19 20:00] VITALS: BP 136/67
--- NOTE | 2020-02-19 20:00 | NUR ---
MS RN NOTES MRSA NARES PRECAUTION,ON BACTROBAN
[2020-02-20 06:26] LABS: BASOPHILS # (AUTO) 0.1 /CMM (0.0-0.2); BASOPHILS % (AUTO) 0.9 % (0.0-2.0); EOSINOPHILS % (AUTO) 3.4 % (0.0-6.0); HEMATOCRIT 29 % (39-51); HEMOGLOBIN 9.4 g/dL (13.5-17.5); LYMPHOCYTES # (AUTO) 0.8 /CMM (0.8-4.8); LYMPHOCYTES % (AUTO) 7.9 % (20.0-44.0); MEAN CORPUSCULAR HGB CONC 32 g/dl (31.0-36.0); MEAN CORPUSCULAR VOLUME 96 fL (80-96); MONOCYTES # (AUTO) 1.2 /CMM (0.1-1.30); MONOCYTES % (AUTO) 10.9 % (2.0-12.0); NEUTROPHILS # (AUTO) 8.2 /CMM (1.8-8.9); NEUTROPHILS % (AUTO) 76.9 % (43.0-81.0); PLATELET COUNT (AUTO) 335 /CMM (150-450); RED BLOOD CELL COUNT(AUTO) 3.06 MIL/uL (4.5-6.0); WHITE BLOOD COUNT (AUTO) 10.6 K/uL (4.3-11.0)
--- NOTE | 2020-02-20 06:44 | NUR ---
MS RN NOTES FAIRLY RESTED,MED COMPLIANT,NO SOB,NO DISTRESS.WILL ENDORSE TO DAY NURSE FOR PABLITO.
--- NOTE | 2020-02-20 06:53 | NUR ---
MS RN NOTES AWAITNG ORDERS FOR COLONOSCOPY BY DR BUNCH
[2020-02-20 07:23] LABS: CALCIUM, SERUM 7.9 mg/dL (8.5-10.1); CREATININE 4.1 mg/dL (0.6-1.3); MAGNESIUM 2.2 mg/dL (1.8-2.4); PHOSPHORUS 3.8 mg/dL (2.5-4.9); POTASSIUM 3.5 mmol/L (3.5-5.1)
--- NOTE | 2020-02-20 07:30 | NUR ---
MS/RN OPENING NOTES Patient resting in bed, A&O x 2. Breathing even and non-labored on RA, no SOB noted. No complaints of pain/discomfort at this time. No cardiac distress at this time. IV access noted in R AC #20g, patent, intact, and flushing well. AV fistula noted on PARIS, bruit and thrill present. Sensation from all peripheral extremities intact. Fall precautions maintained. Will continue with current medical management.
[2020-02-20] MEDS: Z GUARD REMEDY 2 OZ OINT TP SCH ×4 (08:18→21:00)
[2020-02-20] MEDS: MUPIROCIN OINT 2% 22 GM TUBE SCH (08:19)
[2020-02-20] MEDS: PANTOPRAZOLE 40 MG TABLET.DR PO SCH (08:19)
[2020-02-20] MEDS: GABAPENTIN 300 MG CAPSULE PO SCH ×2 (08:19→16:26)
[2020-02-20] MEDS: LEVOTHYROXINE SODIUM 100 MCG TABLET PO SCH (08:19)
[2020-02-20] MEDS: ALLOPURINOL 100 MG TABLET PO SCH (08:19)
[2020-02-20] MEDS: AMLODIPINE BESYLATE 10 MG TABLET PO SCH (08:44)
[2020-02-20] MEDS: hydrALAZINE HCL 50 MG TABLET PO SCH ×3 (08:45→17:00)
[2020-02-20] MEDS: METOPROLOL TARTRATE 50 MG TABLET PO SCH ×2 (08:45→21:02)
[2020-02-20] MEDS: NITROGLYCERIN 30 GM TUBE TP SCH ×2 (08:50→20:59)
[2020-02-20 09:00] VITALS: BP 129/84
[2020-02-20] MEDS: NEPRO VAN 237 ML CAN PO SCH ×2 (09:27→16:26)
--- NOTE | 2020-02-20 12:20 | NUR ---
MS/RN NOTES As per Dr. Salter, colonoscopy procedure will be done by Dr. Mojica on Monday (02/22/20). Bowel preparation will start tomorrow (02/21/20). Doctor will put orders in.
[2020-02-20 16:00] VITALS: BP 105/61
--- NOTE | 2020-02-20 18:11 | NUR ---
MS/RN CLOSING NOTES Patient resting in bed, A&O x2. VSS, afebrile, no SOB noted. Breathing even and non-labored on RA, no respiratory distress noted. IV access on the right AC #20g patent, intact, and flushing well. PARIS AV shunt bruit and thrill present. Sensation from all peripheral extremities remain intact. Fall precautions maintained. Still waiting for doctor to put in orders for bowel prep (02/21/20) and colonoscopy procedure (02/22/20). Will endorse to sensitized paper tester nurse.
--- NOTE | 2020-02-20 19:40 | NUR ---
MS RN NOTES RECEIVED ON BED SLEEPING,AROUSABLE TO VERBAL STIMULI,BREATHING REGULAR,NOT IN ANY FORM OF DISTRESS.WITH SALINE LOCK RIGHT AC INTACT AND PATENT.LEFT UPPER ARM AV SHUNT FOR HD TREATMENT,WITH GOOD BRUIT NOTED.INSTRUCTED NPO TOMORROW MIDNIGHT FOR COLONOSCOPY ON MONDAY.CALL LIGHT IN REACH,NEEDS ANTICIPATED.
[2020-02-20 20:00] VITALS: BP 110/89
--- NOTE | 2020-02-21 06:31 | NUR ---
MS RN NOTES SLEPT WELL AT NIGHT,NO SOB,DUE MEDS ADMINISTERED,FOR HEMODIALYSIS TODAY,NO DISTRESS.CALL LIGHT IN REACH,NEEDS ATTENDED.
[2020-02-21 07:25] LABS: BASOPHILS # (AUTO) 0.2 /CMM (0.0-0.2); BASOPHILS % (AUTO) 1.4 % (0.0-2.0); EOSINOPHILS % (AUTO) 1.1 % (0.0-6.0); HEMATOCRIT 33 % (39-51); HEMOGLOBIN 10.4 g/dL (13.5-17.5); LYMPHOCYTES # (AUTO) 1.1 /CMM (0.8-4.8); LYMPHOCYTES % (AUTO) 8.5 % (20.0-44.0); MEAN CORPUSCULAR HGB CONC 31 g/dl (31.0-36.0); MEAN CORPUSCULAR VOLUME 98 fL (80-96); MONOCYTES # (AUTO) 1.3 /CMM (0.1-1.30); MONOCYTES % (AUTO) 10.1 % (2.0-12.0); NEUTROPHILS # (AUTO) 10.3 /CMM (1.8-8.9); NEUTROPHILS % (AUTO) 78.9 % (43.0-81.0); PLATELET COUNT (AUTO) 389 /CMM (150-450); RED BLOOD CELL COUNT(AUTO) 3.38 MIL/uL (4.5-6.0); WHITE BLOOD COUNT (AUTO) 13.1 K/uL (4.3-11.0)
--- NOTE | 2020-02-21 07:26 | NUR ---
MS/RN OPENING NOTES RECEIVED PATIENT ON BED SLEEPING,EASILY AROUSABLE TO VERBAL STIMULI,BREATHING REGULAR,NO APPARENT RESPIRATORY DISTRESS NOTED. IV ACCESS AT RIGHT AC # 20G INTACT AND PATENT. LEFT UPPER ARM AV SHUNT FOR HD TREATMENT,WITH GOOD BRUIT NOTED.CALL LIGHT WITHIN REACH, WILL CONTINUE TO MONITOR.
[2020-02-21 07:30] VITALS: BP 132/66
[2020-02-21] MEDS: GABAPENTIN 300 MG CAPSULE PO SCH ×2 (08:48→17:13)
[2020-02-21] MEDS: METOPROLOL TARTRATE 50 MG TABLET PO SCH ×2 (08:48→20:46)
[2020-02-21] MEDS: LEVOTHYROXINE SODIUM 100 MCG TABLET PO SCH (08:48)
[2020-02-21] MEDS: ALLOPURINOL 100 MG TABLET PO SCH (08:48)
[2020-02-21] MEDS: AMLODIPINE BESYLATE 10 MG TABLET PO SCH (08:48)
[2020-02-21] MEDS: hydrALAZINE HCL 50 MG TABLET PO SCH ×3 (08:48→17:12)
[2020-02-21] MEDS: Z GUARD REMEDY 2 OZ OINT TP SCH ×4 (08:49→20:49)
[2020-02-21] MEDS: NITROGLYCERIN 30 GM TUBE TP SCH ×2 (08:49→20:48)
[2020-02-21] MEDS: NEPRO VAN 237 ML CAN PO SCH ×2 (08:49→17:13)
[2020-02-21] MEDS: PANTOPRAZOLE 40 MG TABLET.DR PO SCH (08:49)
[2020-02-21 16:00] VITALS: BP 123/55
[2020-02-21] MEDS: ACETAMINOPHEN 325 MG TABLET PO PRN (17:12)
--- NOTE | 2020-02-21 17:16 | NUR ---
MS/RN NOTES PATIENT TEMP 100 F TYLENOL 650 MG PO GIVEN AND COOLING MEASURES WAS APPLIED. WILL CONTINUE TO MONITOR.
[2020-02-21 17:25] LABS: CALCIUM, SERUM 7.8 mg/dL (8.5-10.1); CREATININE 4.8 mg/dL (0.6-1.3); MAGNESIUM 2.2 mg/dL (1.8-2.4); PHOSPHORUS 4.2 mg/dL (2.5-4.9); POTASSIUM 4.2 mmol/L (3.5-5.1)
--- NOTE | 2020-02-21 19:15 | NUR ---
RN NOTES: RECEIVED AWAKE ON BED, LOOKS IRRITABLE, HE IS COMPLAINING OF PAIN WJILE DOING ENDORSEMENT PER RN SHE JUST GIVE HIM PAIN MEDICATION, A/O1-2,HEMODIALYSIS DONE OUTPUT-1 LITER, PARIS AV SHUNT (+) THRILL AND (+) BRUIT, HL ON RAC G#20, PER RN FOR COLONOSCOPY TOMORROW BY , NPO BY 12 MN.ANURIC, ORIENTED TO UNIT AND STAFF, FALL SAFETY AND ASPIRATION OBSERVED, KEPT CALL LIGHT WITHIN EASY REACH. -PER RN TO GET CONSENT FOR COLONOSCOPY AND START GOLYTELY UPON DELIVERY FROM PHARMACY..
--- NOTE | 2020-02-21 19:46 | NUR ---
MS/RN CLOSING NOTES PATIENT IS ON BED. PATIENT IS ON ROOM AIR BREATHING REGULAR. NO APPARENT RESPIRATORY DISTRESS NOTED. IV ACCESS AT RIGHT AC # 20G INTACT AND PATENT. LEFT UPPER ARM AV SHUNT FOR HD TREATMENT, HEMODIALYSIS DONE TODAY 1L OUTPUT. SEEN AND EXAMINED BY MD WITH ORDERS MADE AND CARRIED OUT. ALL DUE MEDICATION WAS GIVEN. FOR COLONOSCOPY TOMORROW. NPO POST MIDNIGHT. BED IN LOWEST POSITION AND LOCKED. SIDE RAILS UP X2. CALL LIGHT WITHIN REACH. WILL ENDORSED TO AUTO TIRE RECAPPER FOR PABLITO.
[2020-02-21 20:00] VITALS: BP 136/59
[2020-02-21] MEDS ORDERED: PEG 3350/NA SULF,BICARB,CL/KCL 4,000 ML BOTTLE PO ONE (20:00)
--- NOTE | 2020-02-21 20:10 | NUR ---
RN NOTES: -EXPLAINED TO PATIENT REGARDING THE PROCEDURE-COLONOSCOPY AND WE NEED TO DO BOWEL PREP, HE UNDERSTAND, COOPERATIVE, STARTED GIVING HIM GOLYTELY, SMALL AMOUNT AT FREQUENT INTERVALS TOLERATED.
--- NOTE | 2020-02-21 22:45 | NUR ---
RN NOTES: CALLED POA-YENNIFER PRADO, EXPLAINED TO HER THAT TOMORROW PATIENT WILL UNDERGONE PROCEDURE OF COLOSCOPY PER , SHE STARTED TO DISCUSS REGARDING PATIENT HISTORY ON OCTOBER 2015 WHEN HE HAD PERITONEAL BLEEDING AND HAD A STROKE, HE ALSO UNDERGONE COLONOSCOPY IN [facility]. SHE IS WILLING TO GIVE THE CONSENT OVER THE PHONE BUT HER MAIN CONCERN IS: 1)NOTIFY THE GASTRO DOCTOR ABOUT INTERNAL BLEEDING HE HAD BACK IN OCTOBER 2015 WHEN HE HAD PERITONEAL BLEEDING AND STROKE,COLOSCOPY DONE IN [facility] 2)SHE WANTS TO SPEAK WITH THE DOCTOR/GI PRIOR TO THE PROCEDURE -YENNIFER AGREED FOR COLONOSCOPY PROCEDURE TOMORROW AND GIVEN TELEPHONE CONSENT. IT WAS WITNESSED BY BARBY/RN, SHE ALSO SPOKE WITH YENNIFER AND SHE HEARD ABOUT HER CONCERN AND WHAT SHE WANT TO CONVERY TO THE DOCTOR. -CONSENT WAS TAKEN OVER THE PHONE AND SIGNED/WITNESSED BY 2 RN. -REMINDER INSTRUCTION PERTAINING YENNIFER'S REQUEST WAS WRITTEN IN THE NURSING REPORT AND A COPY WAS PROVIDED IN THE PATIENT CHART.CHARGE NURSE WAS ALSO NOTIFIED TO ENDORSED TO INCOMING MORNING CN/RN.
--- NOTE | 2020-02-21 23:11 | NUR ---
RN NOTES: IV CANNULA ACCIDENTALLY PULLED OUT DURING REPOSITIONING, PATIENT AGREE FOR REINSERTION AFTER EXPLANATION, COOPERATIVE.TRYING HIS BEST TO DRINK AND TOLERATE HIS GOLYTELY. INSERTED ON THE RFA G#20, 1 ATTEMPT WITH GOOD BACK FLOW,SECURED WITH TRANSPARENT DRESSING. Addendum: 02/22/20 at 0310 by CARIDAD OROZCO RN ADDED NOTES: CORRECTION ON THE NEW IV SITE ITS RIGHT UPPER ARM G#20 NOT IN THE RFA.
--- NOTE | 2020-02-22 01:13 | NUR ---
RN NOTES: PASS LARGE AMOUNT OF WATERY STOOL WITH SOME FORMED SOFT STOOL, GREENISH IN COLOR, GOLYTELY CONTINUE TO BE GIVEN, TOLERATED.
--- NOTE | 2020-02-22 06:49 | NUR ---
RN NOTES: ABLE TO SLEEP AT SHORT INTERVALS, NO PAIN OR DISCOMFORT, NEEDS ATTENDED, TOTAL OF 4 BM LAST ONE IS WATERY STOOL AT 0600, GREENISH IN COLOR,CLEAN AND CHANGE, RESSING DONE ON THE SACRAL AREA. NPO STARTED AT 12 MN, STARTED PRE-OP CHECKLIST, HE WAS MADE AWARE HE WILL BE THE 2ND PATIENT FOR THE PROCEDURE TODAY NO DEFINITE TIME GIVEN, ABLE TO FINISHED ALMOST HALF CONTAINER OF GOLYTELY,TAKING A NAP AND HE DONT WANT TO BE DISTURBED, HE WAS LITTLE IRRITATED WHEN HE WAS CHANGE. ENDORSED FOR CONTINUITY OF CARE.
[2020-02-22 07:19] LABS: BASOPHILS # (AUTO) 0.1 /CMM (0.0-0.2); EOSINOPHILS % (AUTO) 2.8 % (0.0-6.0); HEMATOCRIT 28 % (39-51); HEMOGLOBIN 9.2 g/dL (13.5-17.5); LYMPHOCYTES # (AUTO) 1.2 /CMM (0.8-4.8); LYMPHOCYTES % (AUTO) 12.1 % (20.0-44.0); MEAN CORPUSCULAR HGB CONC 32 g/dl (31.0-36.0); MEAN CORPUSCULAR VOLUME 97 fL (80-96); MONOCYTES # (AUTO) 1.2 /CMM (0.1-1.30); MONOCYTES % (AUTO) 12.2 % (2.0-12.0); NEUTROPHILS # (AUTO) 7.3 /CMM (1.8-8.9); NEUTROPHILS % (AUTO) 71.9 % (43.0-81.0); PLATELET COUNT (AUTO) 412 /CMM (150-450); RED BLOOD CELL COUNT(AUTO) 2.92 MIL/uL (4.5-6.0); WHITE BLOOD COUNT (AUTO) 10.1 K/uL (4.3-11.0)
[2020-02-22] MEDS: PANTOPRAZOLE 40 MG TABLET.DR PO SCH (07:30)
[2020-02-22] MEDS: LEVOTHYROXINE SODIUM 100 MCG TABLET PO SCH (07:30)
[2020-02-22 07:34] LABS: CALCIUM, SERUM 7.7 mg/dL (8.5-10.1); CREATININE 4.2 mg/dL (0.6-1.3); POTASSIUM 3.4 mmol/L (3.5-5.1)
[2020-02-22 08:00] VITALS: BP 149/68
[2020-02-22] MEDS ORDERED: POTASSIUM CHLORIDE 10 MEQ/50 ML PREMIXED IVPB FOR PERIPHERAL LINE IV ONE (08:00)
[2020-02-22] MEDS: POTASSIUM CL. PREMIX PERIPHER. 50 ML IV SCH ×2 (08:26→12:01)
[2020-02-22] MEDS: hydrALAZINE HCL 50 MG TABLET PO SCH ×3 (08:39→16:44)
[2020-02-22] MEDS: METOPROLOL TARTRATE 50 MG TABLET PO SCH ×2 (08:39→20:24)
[2020-02-22] MEDS: ALLOPURINOL 100 MG TABLET PO SCH (08:40)
[2020-02-22] MEDS: GABAPENTIN 300 MG CAPSULE PO SCH ×2 (08:40→16:44)
[2020-02-22] MEDS: NEPRO VAN 237 ML CAN PO SCH ×2 (08:40→17:17)
[2020-02-22] MEDS: AMLODIPINE BESYLATE 10 MG TABLET PO SCH (08:40)
[2020-02-22] MEDS: NITROGLYCERIN 30 GM TUBE TP SCH ×2 (09:00→20:22)
[2020-02-22] MEDS: Z GUARD REMEDY 2 OZ OINT TP SCH ×4 (09:00→20:31)
--- NOTE | 2020-02-22 11:43 | NUR ---
Patient back to unit from OR. Awake, VS are stable , on O2 2l saturation 97% . Will resume renal standard diet as ordered.
[2020-02-22 16:00] VITALS: BP 146/73
--- NOTE | 2020-02-22 18:33 | NUR ---
Patient resting in bed. Breathing unlabored and even on 2l O2 via NC saturating above 95%. VS are stable. Patient turned and repositioned Q2hr. IVline intact and patent , HL. All needs attended , patient kept comfortable. Will endorse to next [facility] ft for PABLITO
--- NOTE | 2020-02-22 19:30 | NUR ---
MS/RN OPENING NOTES: RECEIVED PT. A/OX2. VERBALLY RESPONSIVE AND ABLE TO MAKE NEEDS KNOWN. HAS PERIODS OF CONFUSION AND AGITATION. ON 2L OF OXYGEN VIA NC SATURATING AT 96%. BREATHING EVEN AND UNLABORED. NO SOB NOTED. NO COMPLAINS OF PAIN AT THIS TIME. IV ON THE RIGHT UA #20G HL NOTED. SAFETY MEASURES IN PLACE. BED IN LOW, LOCKED POSITION WITH SR UP X2. WILL CONTINUE MONITORING ACCORDINGLY.
[2020-02-22 20:00] VITALS: BP 145/72
[2020-02-22] MEDS: MUPIROCIN OINT 2% 22 GM TUBE SCH (20:18)
--- NOTE | 2020-02-23 05:00 | NUR ---
MS/RN NOTES: KEPT PT WARM AND COMFORTABLE THROUGH OUT THE SHIFT. KEPT CLEAN AND DRY. WOUND TREATMENTS ARE DONE. WILL KEEP MONITORING PT. ACCORDINGLY.
--- NOTE | 2020-02-23 06:52 | NUR ---
MS/RN CLOSING NOTES: PT. A/OX2. SLEEPING IN BED. VERBALLY RESPONSIVE AND ABLE TO MAKE NEEDS KNOWN. HAS PERIODS OF CONFUSION AND AGITATION. ON 2L OF OXYGEN VIA NC SATURATING AT 96%. BREATHING EVEN AND UNLABORED. NO SOB NOTED. NO COMPLAINS OF PAIN AT THIS TIME. IV ON THE RIGHT UA #20G HL NOTED. SAFETY MEASURES IN PLACE. BED IN LOW, LOCKED POSITION WITH SR UP X2. ALL DUE MEDS GIVEN ORDERED, ALL NEEDS MET AND RENDERED. WILL ENDORSE TO DAY SHIFT FOR PABLITO.
[2020-02-23 08:00] VITALS: BP 104/73
--- NOTE | 2020-02-23 08:30 | NUR ---
Bedside HD started ; patient awake and VS are stable
[2020-02-23] MEDS: LEVOTHYROXINE SODIUM 100 MCG TABLET PO SCH (08:59)
[2020-02-23] MEDS: PANTOPRAZOLE 40 MG TABLET.DR PO SCH (08:59)
[2020-02-23] MEDS: AMLODIPINE BESYLATE 10 MG TABLET PO SCH (09:00)
[2020-02-23] MEDS: ALLOPURINOL 100 MG TABLET PO SCH (09:00)
[2020-02-23] MEDS: NITROGLYCERIN 30 GM TUBE TP SCH (09:00)
[2020-02-23] MEDS: hydrALAZINE HCL 50 MG TABLET PO SCH ×3 (09:00→16:19)
[2020-02-23] MEDS: METOPROLOL TARTRATE 50 MG TABLET PO SCH (09:00)
[2020-02-23] MEDS: MUPIROCIN OINT 2% 22 GM TUBE SCH (09:01)
[2020-02-23] MEDS: Z GUARD REMEDY 2 OZ OINT TP SCH ×2 (09:02)
[2020-02-23] MEDS: GABAPENTIN 300 MG CAPSULE PO SCH ×2 (09:02→16:19)
[2020-02-23] MEDS: NEPRO VAN 237 ML CAN PO SCH ×2 (09:04→16:19)
--- NOTE | 2020-02-23 10:55 | NUR ---
HD finished ; output 1500 ml, patient in stable condition
[2020-02-23 16:00] VITALS: BP 118/81
[2020-02-23 16:19] VITALS: BP 118/81
--- NOTE | 2020-02-23 16:20 | NUR ---
Discharge pictures Patient refused d/c pictures, pt states " I am embarrassed by all of this, leave me alone, I just want to go home." The reason for taking pictures explained. Patient strongly refused.
--- NOTE | 2020-02-23 17:36 | NUR ---
Report called to [facility] ( [facility] ) cobbler upper time at 1930 , room 6
--- NOTE | 2020-02-23 18:20 | NUR ---
Patient resting on room air , breathing unlabored and even o n room air , no distress noted. Patient kept clean and dry, comfortable . Patient able to reposition himself in bed. IV line intact and patent. Left upper arm IV shunt intact. Patient will be picked up for transfer to SNF at 1930. Will endorse to next shift for PABLITO
== END 2020-02-23 20:10 | DRG 870 ==
LOC: ER 12:41 → ICU 14:50 → MED 02-11 15:22 → TELE 02-11 15:27 → MED 02-13 09:38
PROVIDERS: ADMIT Student in an Organized Health Care Education/Training Program; ATTEND Hospitalist
PROC: 5A1955Z Respiratory Ventilation, Greater than 96 Consecutive Hours (ICD-10-PCS; principal; 2020-02-05)
PROC: 0BH17EZ Insertion of Endotracheal Airway into Trachea, Via Natural or Artificial Opening (ICD-10-PCS; 2020-02-05)
PROC: 05HY33Z Insertion of Infusion Device into Upper Vein, Percutaneous Approach (ICD-10-PCS; 2020-02-05)
PROC: 30233N1 Transfusion of Nonautologous Red Blood Cells into Peripheral Vein, Percutaneous Approach (ICD-10-PCS; 2020-02-06)
PROC: 5A1D70Z Performance of Urinary Filtration, Intermittent, Less than 6 Hours Per Day (ICD-10-PCS; 2020-02-06)
PROC: 0DB98ZX Excision of Duodenum, Via Natural or Artificial Opening Endoscopic, Diagnostic (ICD-10-PCS; 2020-02-19)
PROC: 0DJD8ZZ Inspection of Lower Intestinal Tract, Via Natural or Artificial Opening Endoscopic (ICD-10-PCS; 2020-02-22)
DX: A41.9 Sepsis, unspecified organism (principal); N17.0 Acute kidney failure with tubular necrosis; I21.A1 Myocardial infarction type 2; J96.01 Acute respiratory failure with hypoxia; E43 Unspecified severe protein-calorie malnutrition; G92 Toxic encephalopathy; J69.0 Pneumonitis due to inhalation of food and vomit; N18.5 Chronic kidney disease, stage 5; R64 Cachexia; J90 Pleural effusion, not elsewhere classified; J44.0 Chronic obstructive pulmonary disease with (acute) lower respiratory infection; I13.2 Hypertensive heart and chronic kidney disease with heart failure and with stage 5 chronic kidney disease, or end stage renal disease; D50.9 Iron deficiency anemia, unspecified; D63.8 Anemia in other chronic diseases classified elsewhere; E03.9 Hypothyroidism, unspecified; I25.2 Old myocardial infarction; F17.210 Nicotine dependence, cigarettes, uncomplicated; I48.91 Unspecified atrial fibrillation; E87.5 Hyperkalemia; D69.6 Thrombocytopenia, unspecified; E88.09 Other disorders of plasma-protein metabolism, not elsewhere classified; K64.8 Other hemorrhoids; K74.60 Unspecified cirrhosis of liver; K44.9 Diaphragmatic hernia without obstruction or gangrene; N40.0 Benign prostatic hyperplasia without lower urinary tract symptoms; Z87.11 Personal history of peptic ulcer disease; I50.9 Heart failure, unspecified; K25.9 Gastric ulcer, unspecified as acute or chronic, without hemorrhage or perforation; F10.21 Alcohol dependence, in remission; F19.11 Other psychoactive substance abuse, in remission; L89.896 Pressure-induced deep tissue damage of other site; S20.412A Abrasion of left back wall of thorax, initial encounter; S50.311A Abrasion of right elbow, initial encounter; S50.812A Abrasion of left forearm, initial encounter; X58.XXXA Exposure to other specified factors, initial encounter; Y93.9 Activity, unspecified; Y92.129 Unspecified place in nursing home as the place of occurrence of the external cause; L89.156 Pressure-induced deep tissue damage of sacral region; L89.226 Pressure-induced deep tissue damage of left hip; D63.1 Anemia in chronic kidney disease; Z22.322 Carrier or suspected carrier of Methicillin resistant Staphylococcus aureus; R91.8 Other nonspecific abnormal finding of lung field; K29.70 Gastritis, unspecified, without bleeding; K42.9 Umbilical hernia without obstruction or gangrene; B18.2 Chronic viral hepatitis C; S80.211A Abrasion, right knee, initial encounter
CPT/HCPCS: 31720; 36415; 36600; 71045-TC; 80048-TC; 80053-TC; 80076-TC; 80202-TC; 81000-TC; 82140-TC; 82272-TC; 82378; 82550-TC; 82570-TC; 82728-TC; 82803-TC; 83540-TC; 83605-TC; 83735-TC; 83880; 83970; 84100-TC; 84155; 84155-TC; 84165; 84300-TC; 84439-TC; 84443-TC; 84484-TC; 85025-TC; 85730-TC; 86706; 86850-TC; 86921-TC; 87040-TC; 87070-TC; 87081-TC; 87086-TC; 87340; 88305-TC; 90935-TC; 92526; 92611-TC; 93307-TC; 94002-TC; 94003-TC; 94799-TC; 97110-TC; 97112-TC; 97530-TC; 99082-TC; A6253; A6403; G0378; J0282; J2250; J2270; J2543; J2704; J2916; J2930; J3370; J3475; J3480; J3490; J7030; J7040; J7042; J7050; J7060; J7070; P9016-BL; U0003-CS